=== PATIENT | male | born 1970 | race Hispanic/Latino ===

== ENCOUNTER 2021-09-02 06:57 | Day surgery (SDC) | payer BC ==
[2021-08-30 13:05] LABS: Absolute Lymphocytes (CBC) 2.4 K/uL (0.7-4.9); Hematocrit 41.7 % (39.6-49.0); MPV 7.7 fL (7.6-11.3); RBC Red Blood Cell Count 6.58 M/uL (4.33-5.43)
[2021-08-30 13:21] LABS: Potassium 4.3 mmol/L (3.5-5.1)
--- NOTE | 2021-08-30 13:46 | RAD REPORT ---
EXAM DESCRIPTION: RAD - Chest Pa And Lat (2 Views) - 08/30/2021 1:26 pm CLINICAL HISTORY: PREPROCEDURE SCREENINGpending drainage of soft tissue mass COMPARISON: None TECHNIQUE: Frontal and lateral views of the chest were obtained. FINDINGS: The lungs are clear. Heart size is normal and central vasculature is within normal limit s. No pleural effusion or pneumothorax seen. No acute bony finding noted. No aortic abnormality. IMPRESSION: No acute cardiopulmonary process.
[2021-08-30 14:18] LABS: Blood Morphology Comment NOTED (NOT SEEN); Hypochromasia 2+; Platelet Estimate ADEQ; White Blood Cell Scan OK (OK)
[2021-09-02] MEDS ORDERED: Ringers Lactate 1,000 ML IV ONE (07:29)
[2021-09-02] MEDS ORDERED: CELECOXIB 100 MG CAPSULE ONE (08:16)
[2021-09-02] MEDS ORDERED: ACETAMINOPHEN 500 MG TAB ONE (08:17)
[2021-09-02] MEDS ORDERED: BUPIVACAINE 0.5% PF 10 ML VIAL ONE (08:34)
[2021-09-02] MEDS: LIDOCAINE 1% W/EPI 1:100,000 MDV 50 ML VIAL ONE ×2 (09:08→09:30)
[2021-09-02] MEDS ORDERED: MIDAZOLAM HCL 2 MG/2 ML INJ ONE (09:29)
[2021-09-02] MEDS ORDERED: propofoL 200 MG/20 ML VIAL IV ONE ×2 (09:29→09:31)
[2021-09-02] MEDS ORDERED: FENTANYL CITR 100 MCG/2 ML ONE (09:29)
[2021-09-02] MEDS ORDERED: LIDOCAINE 1% MPF 30 ML VIAL ONE (09:29)
--- NOTE | 2021-09-02 09:50 | P.BOP ---
Preoperative diagnosis: infected posterior neck subQ mass Postoperative diagnosis: same Primary procedure: Excisional biopsy of infected posterior neck subQ mass 3x3cm Estimated blood loss: <10cc Specimen: mass and purulent discharge culture Findings: infected mass with abscess Anesthesia: MAC Complications: None Drain(s): Other (iodoform packing) Transferred to: Recovery Room Condition: Good
[2021-09-02 10:03] VITALS: BP 112/73; TEMP 97.6
[2021-09-02 10:50] VITALS: O2SAT 98
--- NOTE | 2021-09-02 20:37 | OP ---
Date of Procedure: 09/02/2021 Surgeon: Chung Hardwick MD Preoperative Diagnosis: Infected posterior neck subcutaneous mass. Postoperative Diagnosis: Infected posterior neck subcutaneous mass. Procedure: Excisional biopsy of infected posterior neck subcutaneous mass, 3 x 3 cm. Estimated Blood Loss: Less than 10 cc. Anesthesia: MAC plus local. Complications: None. Packing: Iodoform packing. Indications: This is a case of a 51-year-old patient, who comes to us with infected posterior neck m ass, purulent discharge, and cellulitis. Benefits, alternatives, and risks of excisional biopsy of i nfected posterior neck mass with drainage of an abscess fully explained which include, but not limite d to infection, bleeding, damage to adjacent structures, anesthesia complication, recurrence, SC, and even . He also understands this may not relieve his symptoms. He might need more than one willem gical intervention. He signed a consent. He also understands the need for dressing changes. Description Of Procedure: The patient was brought to the operating room and placed in supine positio n. Anesthesia was done without complication. A time-out was called. The patient was placed in late ral decubitus position with proper protection. The posterior neck area was prepped and draped in a s terile fashion. We previously marked, with me and the patient in the holding room, the area of tico rn, so we make an incision in that region to include skin and deep subcutaneous tissue. We find an a bscess deep with multiple loculations that were explored and opened. Mass was completely excised. H emostasis obtained. Area was irrigated. Cultures were previously obtained at the beginning. Local anesthesia was applied from lidocaine and Marcaine and then, the area was packed with wet-to-dry dres sing. The patient tolerated the procedure well. The patient sent to Recovery in stable condition. Sponge count and instrument count were correct. HM/MODL Voice ID: [id number] Report ID: [id number]
--- NOTE | 2021-09-02 20:43 | DS ---
Date of Discharge: 09/02/2021 Diagnosis: Infected posterior neck mass. Disposition: Home. Condition: Stable. Activity: As tolerated. No heavy lifting. Plan: Wet-to-dry dressing and normal saline daily. Followup in my office this Thursday afternoon. Call for appointment, [phone]. DI/KIRSTEN Voice ID: [id number] Report ID: [id number]
== END 2021-09-02 10:35 | disposition home or self-care (01) ==
LOC: OR 06:57
PROVIDERS: ATTEND Surgery
PROC: 0JB50ZZ Excision of Left Neck Subcutaneous Tissue and Fascia, Open Approach (ICD-10-PCS; principal; 2021-09-02 09:15)
DX: L72.0 Epidermal cyst (principal); Z20.822 Contact with and (suspected) exposure to COVID-19
CPT/HCPCS: 93005; 87070; 85025; 80048; 36415; 87205; 88304; 87075; 71046; 11423; U0003; J2704; J2250; J3010; J7120

== ENCOUNTER 2022-02-13 14:58 | Emergency (ER) | payer OTHER, BC ==
[2022-02-13] MEDS ORDERED: IBUPROFEN 200 MG TAB PO ONE (15:39)
--- NOTE | 2022-02-13 16:15 | RAD REPORT ---
EXAM DESCRIPTION: RAD - Wrist Right 3 View - 02/13/2022 4:01 pm CLINICAL HISTORY: PAIN COMPARISON: No comparisons FINDINGS: No fracture is identified. There is no dislocation or periosteal reaction noted. Epiphyses and growth plates are normal in appearance. No foreign body or other soft tissue abnormality. IMPRESSION: Negative right wrist examination. Repeat imaging can be performed in 5 days if the patient has continued symptoms concerning for fractu re.
--- NOTE | 2022-02-13 16:25 | EDPHYS ---
Physician Documentation [facility] Name: Lenny Castillo Age: 51 yrs Sex: Male : 1970 Arrival Date: 02/13/2022 Time: 15:07 Bed 11 Private MD: ED Physician Eleazar Wilson HPI: 02/13 15:17 This 51 yrs old Male presents to ER via Ambulatory with complaints of Right pm1 Wrist Pain. 15:17 The patient or guardian reports pain. The complaints affect the right wrist diffusely. pm1 Context: The problem was sustained at work, resulted from tripped and supported his fall against the wall with his right hand. Onset: The symptoms/episode began/occurred today. Modifying factors: The symptoms are alleviated by holding still, the symptoms are aggravated by movement. Associated signs and symptoms: Pertinent negatives: decreased sensation distally, numbness distally, tingling distally. The patient has not experienced similar symptoms in the past. The patient has not recently seen a physician. Historical: - Allergies: 15:12 No Known Allergies; iw - PMHx: 15:12 aortic aneurysm; Asthma; iw - Immunization history:: Adult Immunizations unknown. - Social history:: Smoking status: unknown. ROS: 15:17 Constitutional: Negative for fever, chills, and weight loss, Cardiovascular: Negative pm1 for chest pain, palpitations, and edema, Respiratory: Negative for shortness of breath, cough, wheezing, and pleuritic chest pain. 15:17 Skin: Negative for injury, rash, and discoloration, Neuro: Negative for headache, weakness, numbness, tingling, and seizure. 15:17 MS/extremity: Positive for pain, of the right wrist. 15:17 All other systems are negative. Exam: 15:17 Hand exam: Exam is positive for injury, pain, ROM: full active range of motion, in the pm1 right wrist, full passive range of motion, in the right wrist, Patient able to make a full fist with his right hand, Circulation is intact in all extremities. sensation intact. 15:17 Skin: Exam negative for acute changes, Appearance: normal except for affected area. 15:17 Constitutional: This is a well developed, well nourished patient who is awake, alert, and in no acute distress. Head/Face: Normocephalic, atraumatic. 15:17 Cardiovascular: Exam negative for acute changes, Rate: normal, Rhythm: regular, Pulses: no pulse deficits are appreciated. 15:17 Respiratory: Exam negative for acute changes, respiratory distress, shortness of breath. 15:17 Neuro: Exam negative for acute changes, Orientation: is normal, Mentation: is normal, Motor: is normal, moves all fours. Vital Signs: 15:11 BP 120 / 85; Pulse 94; Resp 16; Temp 98.4; Pulse Ox 98% on R/A; Weight 91.63 kg; Height iw 5 ft. 10 in. (177.80 cm); Pain 8/10; 15:11 Body Mass Index 28.98 (91.63 kg, 177.80 cm) iw MDM: 15:14 Patient medically screened. [facility] 15:22 Data reviewed: vital signs. Data interpreted: Pulse oximetry: on room air is 98 %. pm1 Interpretation: normal. 16:23 Counseling: I had a detailed discussion with the patient and/or guardian regarding: the pm1 historical points, exam findings, and any diagnostic results supporting the discharge/admit diagnosis, radiology results, the need for outpatient follow up, to return to the emergency department if symptoms worsen or persist or if there are any questions or concerns that arise at home. 16:29 ED course: Patient requesting pain medication stronger than NSAID, therefore will pm1 prescribe prescription for Tylenol 3. 16:32 ED course: PMPAware reviewed. pm1 02/13 15:22 Order name: Wrist Right 3 View XRAY; Complete Time: 16:22 pm1 02/13 16:23 Order name: Wrist Splint; Complete Time: 07:54 pm1 Administered Medications: 15:33 Drug: Ibuprofen 600 mg Route: PO; iw 16:33 Follow up: Response: No adverse reaction iw Disposition Summary: 02/13/22 16:24 Discharge Ordered Location: Home pm1 Problem: new pm1 Symptoms: have improved pm1 Condition: Stable pm1 Diagnosis - Unspecified sprain of right wrist, initial encounter pm1 Followup: pm1 - With: Emergency Department - When: As needed - Reason: Worsening of condition Followup: pm1 - With: Private Physician - When: 5 - 6 days - Reason: Recheck today's complaints, Continuance of care, Re-evaluation by your physician Discharge Instructions: - Discharge Summary Sheet pm1 - Wrist Splint, Adult pm1 - Wrist Sprain, Adult pm1 Forms: - Medication Reconciliation Form pm1 - Thank You Letter pm1 - Antibiotic Education pm1 - Prescription Opioid Use pm1 Prescriptions: - Diclofenac Sodium 75 mg Oral tablet,delayed release (DR/EC) - take 1 tablet by ORAL route 2 times per day As needed; 30 tablet; Refills: 0, pm1 Product Selection Permitted - Tylenol-Codeine #3 300 mg-30 mg Oral - take 2 tablet by ORAL route every 6 hours As needed; 16 tablet; Refills: 0, pm1 Product Selection Permitted Signatures: Dispatcher [employer] EDEleazar White MD MD cha Williams, Irene, RN RN Trevor Dale NP ACID ETCH OPERATOR pm1
--- NOTE | 2022-02-13 16:25 | ER ---
Nurse's Notes [facility] Name: Lenny Castillo Age: 51 yrs Sex: Male : 1970 Arrival Date: 02/13/2022 Time: 15:07 Bed 11 Private MD: Diagnosis: Unspecified sprain of right wrist, initial encounter Presentation: 02/13 15:11 Chief complaint: Patient states: I tripped at work today and jammed my right hand into iw the wall. Coronavirus screen: At this time, the client does not indicate any symptoms associated with coronavirus-19. Ebola Screen: Patient negative for fever greater than or equal to 101.5 degrees Fahrenheit, and additional compatible Ebola Virus Disease symptoms Patient denies exposure to infectious person. Patient denies travel to an Ebola-affected area in the 21 days before illness onset. No symptoms or risks identified at this time. Initial Sepsis Screen: Does the patient meet any 2 criteria? No. Patient's initial sepsis screen is negative. Does the patient have a suspected source of infection? No. Patient's initial sepsis screen is negative. Risk Assessment: Do you want to hurt yourself or someone else? Patient reports no desire to harm self or others. Onset of symptoms was February 13, 2022. 15:11 Method Of Arrival: Ambulatory iw 15:11 Acuity: DREA 4 iw Triage Assessment: 16:50 General: Appears in no apparent distress. Behavior is calm, cooperative. iw Historical: - Allergies: 15:12 No Known Allergies; iw - PMHx: 15:12 aortic aneurysm; Asthma; iw - Immunization history:: Adult Immunizations unknown. - Social history:: Smoking status: unknown. Screenin:50 Abuse screen: Denies threats or abuse. Denies injuries from another. Nutritional iw screening: No deficits noted. Tuberculosis screening: No symptoms or risk factors identified. Fall Risk None identified. Assessment: 15:30 General: Appears in no apparent distress. Behavior is calm, cooperative. Pain: iw Complains of pain in right wrist. Neuro: Level of Consciousness is awake, alert, obeys commands, Oriented to person, place, time, situation, Moves all extremities. Cardiovascular: Patient's skin is warm and dry. Respiratory: Respiratory effort is even, unlabored, Respiratory pattern is regular, symmetrical. Derm: Skin is intact, is healthy with good turgor. Musculoskeletal: Range of motion: intact in all extremities. Vital Signs: 15:11 BP 120 / 85; Pulse 94; Resp 16; Temp 98.4; Pulse Ox 98% on R/A; Weight 91.63 kg; Height iw 5 ft. 10 in. (177.80 cm); Pain 8/10; 15:11 Body Mass Index 28.98 (91.63 kg, 177.80 cm) iw ED Course: 15:07 Patient arrived in ED. iw 15:09 Trevor Resendiz NP is PHCP. pm1 15:09 Eleazar Wilson MD is Attending Physician. pm1 15:12 Triage completed. iw 15:13 Darshana Escobar RN is Primary Nurse. iw 15:13 Arm band placed on. iw 15:30 Patient has correct armband on for positive identification. iw 16:03 Wrist Right 3 View XRAY In Process Unspecified. EDMS 16:50 No provider procedures requiring assistance completed. Patient did not have IV access iw during this emergency room visit. Administered Medications: 15:33 Drug: Ibuprofen 600 mg Route: PO; iw 16:33 Follow up: Response: No adverse reaction iw Medication: 15:30 VIS not applicable for this client. iw Outcome: 16:24 Discharge ordered by MD. pm1 16:50 Discharged to home ambulatory. iw 16:50 Condition: good 16:50 Discharge instructions given to patient, Instructed on discharge instructions, follow up and referral plans. medication usage, Demonstrated understanding of instructions, follow-up care, medications, Prescriptions given X 2. 16:51 Patient left the ED. iw Signatures: Dispatcher [employer] EDRI Darshana Escobar RN RN iw Trevor Resendiz NP COACH CLEANER pm1
[2022-02-13 17:11] VITALS: BP 120/85; TEMP 98.4; O2SAT 98
== END 2022-02-13 16:51 | disposition home or self-care (01) ==
LOC: ER 14:58
DX: S63.501A Unspecified sprain of right wrist, initial encounter (principal)
CPT/HCPCS: 99283

== ENCOUNTER 2022-07-20 23:03 | Emergency (ER) | payer BC, OTHER ==
--- OUTSIDE RECORDS SUMMARY | 2022-07-20 23:08 | XMS REPORT | Continuity of Care Document ---
:1970 Author Organization [facility] t Address [facility] [place] [address] Care Team Providers Name Role Phone DAVID AVENDAÑO Primary Care Physician Unavailable NIKITA FANG Attending Clinician Unavailable Lab, Ang - Db Attending Clinician Unavailable David Avendaño MD Attending Clinician DAVID AVENDAÑO Attending Clinician Unavailable IRENE FREDERICK Attending Clinician Unavailable Gabrielle Almeida Attending Clinician Feliciano Espinosa MD Attending Clinician Doctor Unassigned, [place] Attending Clinician Unavailable Team, [facility] Attending Clinician Unavailabl e Vaccine, Jem Posadas Cbc Fam Attending Clinician Unavailable January Arguello Attending Clinician JANUARY CLAY Attending Clinician Unavailable FELICIANO ESPINOSA Attending Clinician Unavailable Lela Augustin MA Attending Clinician Unavailable Irene Frederick MD Attending Clinician GABRIELLE RODRIGUEZ Attending Clinician Unavailable Mahogany Crowe Attending Clinician Yumiko Fernandez RN Attending Clinician Unavailable SMITHA MEDRANO Attending Clinician Unavailable Smitha Dow Attending Clinician Gloria Lomax Attending Clinician Nurse, Jem Posadas Attending Clinician Unavailable Lab, Adc Fam Pob I Attending Clinician Unavailable Silvia Kulkarni MD Attending Clinician SILVIA KULKARNI Attending Clinician Unavailable MAHOGANY MAYNARD Attending Clinician Unavailable Eric Tubbs MD Attending Clinician Kaveh Schaefer MD Attending Clinician NISH REYNA Attending Clinician Unavailable Kaveh Schaefer MD Admitting Clinician Payers Payer Name Policy Type Policy Number Effective Date Expiration Date Zehra guzman [employer] [facility] [facility] [id number] 2020 00:00:00 [employer] [id number] 2020 [facility] 00:00:00 Problems Condition Condition Condition Status Onset Resolution Last Treating Co mments Source Name Details Category Date Date Treatment Clinician Date Arthritis Arthritis Disease Active Uni vers 6-13 ity of 00:00: [place] 00 Medical Branch History of History of Disease Active U nivers cataract cataract 6-13 ity of 00:00: [place] 00 Medical Branch Hyperbilir Hyperbilir Disease Active U nivers ubinemia ubinemia 6-13 ity of 00:00: [place] 00 Medical Branch Knee pain Knee pain Disease Active Uni vers 6-13 ity of 00:00: [place] 00 Medical Branch Ascending Ascending Disease Active Uni vers aortic aortic 6-07 ity of aneurysm aneurysm 00:00: [place] 00 Medical Branch Chest pain Chest pain Disease Active U nivers 6-06 ity of 00:00: [place] 00 Medical Branch Well adult Well adult Disease Active 2017-07 U nivsoco exam exam 0-01 ity of 00:00: [place] 00 Medical Branch Need for Need for Disease Active 2017-07 Unive rs prophylact prophylact 0-01 it y of ic ic 00:00: [place] vaccinatio vaccinatio 00 Me dical n and n and Branch inoculatio inoculatio n against n against influenza influenza Nonrheumat Nonrheumat Disease Active Overview : Univers ic aortic ic aortic 2-14 Formattin i ty of valve valve 00:00: g of this [place] stenosis stenosis 00 note Medica l might be Branch different from the original. Formattin g of this note might be different from the original. Repeat ECHO q year Anxiety Anxiety Disease Active Overview: Univ ers 08-19 Formattin ity of 00:00: g of this note Medical might be Branch different from the original. Last Assessmen t & Plan: Formattin g of this note might be different from the original. Less tired while off Paxil but still nervous on 30mg Cymbalta, will try 60mg call if wants 40 mg Hypertensi Hypertensi Disease Active Overview : Univers on on 08-19 Formattin ity of 00:00: g of this note Medical might be Branch different from the original. Last Assessmen t & Plan: Formattin g of this note might be different from the original. Hypertens ion is unchanged .Continue current treatment regimen.B lood pressure will be reassesse d 6 months. Gastric Gastric Disease Active 2015-07 Univers polyps polyps 09-11 ity of 00:00: [place] 00 Medical Branch Chronic Chronic Disease Active 2015-07 Univers cough cough 2 ity of 00:00: [place] [facility] Allergic Allergic Disease Active Unive rs rhinitis rhinitis 02-14 ity of 00:00: [place] 00 Medical Branch Gastroesop Gastroesop Disease Active U nivers hageal hageal 02-14 ity of reflux reflux 00:00: [place] disease disease 00 Medical without without Branch esophagiti esophagiti s s Moderate Moderate Disease Active Unive rs persistent persistent 02-14 it y of asthma asthma 00:00: [place] without without 00 Medical complicati complicati Br anch on on Mixed Mixed Disease Active Overview: Univer s hyperlipid hyperlipid 02-14 Formattin ity of emia emia 00:00: g of this note Medical might be Branch different from the original. Last Assessmen t & Plan: Formattin g of this note might be different from the original. Lipid abnormali ties are improving with lifestyle modificat ions.cont inue regular exercise and low fat dietLipid s will be reassesse d in 6 months. Bicuspid Bicuspid Disease Active Overview: Un espinoza aortic aortic 02-10 Formattin ity of valve valve 00:00: g of this note Medical might be Branch different from the original. Formattin g of this note might be different from the original. Repeat ECHO q year Ascending Ascending Disease Active Uni vers aorta aorta 7-25 ity of dil[place] 00 [place] Beta Beta Disease Active Univers thalassemi thalassemi it y of a trait a trait [place] [facility] [place] Allergies, Adverse Reactions, Alerts Allergy Allergy Status Severity Reaction(s) Onset Inactive Treating Comm ents Source Name Type Date Date Clinician Cat Propensi Active Unknown - Unive rs Dander ty to See comments 3-22 ity of adverse 00:00: [place] reaction 00 Medical s Branch Dog Propensi Active Unknown - Unive rs Dander ty to See comments 3-22 ity of adverse 00:00: [place] reaction 00 Medical s Branch Grass Propensi Active Itching Univers Pollen ty to 3-22 ity of adverse 00:00: [place] reaction 00 Medical s Branch Tree And Propensi Active Unknown - Uni vers Shrub ty to See comments 3-22 ity of Pollen adverse 00:00: [place] reaction 00 Medical s Branch CAT DRUG Active Unknown-Cmnt Univ ers DANDER INGREDI 3-22 ity of 00:00: [place] 00 Medical Branch DOG DRUG Active Unknown-Cmnt Univ ers DANDER INGREDI 3-22 ity of 00:00: [place] 00 Medical Branch GRASS DRUG Active ITCHING Univers POLLEN INGREDI 3- ity of 00:00: [place] 00 Medical Branch TREE AND DRUG Active Unknown-Cmnt Un espinoza SHRUB INGREDI 3-22 ity of POLLEN 00:00: [place] 00 Medical Branch Hay Propensi Active Unknown - Unive rs Fever ty to See comments 7-29 ity of And adverse 00:00: [place] Allergy reaction 00 Medical Relief s Branch HAY DRUG Active Unknown-Cmnt Univ ers FEVER 7-29 ity of AND 00:00: [place] ALLERGY 00 Medical RELIEF Branch Social History Social Habit Start Date Stop Date Quantity Comments Source History SDOH University o f Alcohol Std [place] Medical Drinks Branch History SDKS University o f Alcohol Binge [place] Medic al Branch History SDKS University o f Alcohol Comment [place] [facility] Exposure to 2022-07-07 2022-07-17 Not sure University of SARS-CoV-2 00:00:00 07:44:00 [place] [facility] (event) Branch Alcohol intake 2022-01-07 2022-01-07 Lifetime University of 00:00:00 00:00:00 non-drinker [facility] [place] (finding) [place] Tobacco use and 2020-12-23 2020-12-23 Smokeless tobacco Un iversity of exposure 00:00:00 00:00:00 non-user [facility] History SDOH 2020-12-23 2020-12-23 1 University o f Alcohol Frequency 00:00:00 00:00:00 [facility] Sex Assigned At [birth year] Universit y of 00:00:00 00:00:00 [facility] Smoking Status Start Date Stop Date Source Never smoked tobacco [facility] Medications Ordered Filled Start Stop Current Ordering Indication Dosage Frequency Signature Comments Components Source Medication Medication Date Date Medication? Clinician (SIG) [place] 2021-07- No 1{capsu Take 1 Univers n capsule 09-16 le} capsule by ity of 08:41: 00:00 mouth. [place] 12 :00 [facility] [place] [facility] 2021-07- No 1{capsu Take 1 Univers n capsule 09-16 le} capsule by ity of 08:41: 00:00 mouth. [place] 12 :00 [facility] rosuvastati 2021-07- No 20mg Take 20 mg Univers n 20 mg 1-27 11-27 by mouth ity of tablet 09:05: 15:05 at [place] 49 :47 bedtime. Medical Branch MONTELUKAST 2021-07 Yes [id number] TAKE 1 Univers 10 mg 1-27 TABLET BY ity of tablet 00:00: MOUTH ONCE [place] 00 DAILY IN Medical THE Branch EVENING DULOXETINE 2021-07 Yes [id number] Take 1 U nivers 60 mg 1-27 capsule by ity of capsule 00:00: mouth once daily Medical Branch ROSUVASTATI 2021-07 Yes [id number] Take 1 Univers N 20 mg 1-27 tablet by ity of tablet 00:00: mouth once [place] 00 daily Medical Branch MONTELUKAST 2021-07 Yes [id number] TAKE 1 Univers 10 mg 1-27 TABLET BY ity of tablet 00:00: MOUTH ONCE 00 DAILY IN Medical THE Branch EVENING DULOXETINE 2021-07 Yes [id number] Take 1 U nivers 60 mg 1-27 capsule by ity of capsule 00:00: [place] ROSUVASTATI 2021-07 Yes [id number] Take 1 Univers N 20 mg 1-27 tablet by ity of tablet 00:00: mouth once [place] daily Medical Branch MONTELUKAST 2021-07 Yes [id number] TAKE 1 Univers 10 mg 1-27 TABLET BY ity of tablet 00:00: MOUTH ONCE DAILY IN Medical THE Branch EVENING DULOXETINE 2021-07 Yes [id number] Take 1 U nivers 60 mg 1-27 capsule by ity of capsule 00:00: [place] ROSUVASTATI 2021-07 Yes [id number] Take 1 Univers N 20 mg 1-27 tablet by ity of tablet 00:00: mouth once daily Medical Branch MONTELUKAST 2021-07 Yes [id number] TAKE 1 Univers 10 mg 1-27 TABLET BY ity of tablet 00:00: MOUTH ONCE DAILY IN [facility] THE [place] EVENING DULOXETINE 2021-07 Yes [id number] Take 1 U nivers 60 mg 1-27 capsule by ity of capsule 00:00: mouth once a s daily Medical Branch ROSUVASTATI 2021-07 Yes [id number] Take 1 Univers N 20 mg 1-27 tablet by ity of tablet 00:00: mouth once daily [facility] Branch MONTELUKAST 2021-07 Yes [id number] TAKE 1 Univers 10 mg 1-27 TABLET BY ity of tablet 00:00: MOUTH ONCE DAILY IN [facility] THE [place] EVENING DULOXETINE 2021-07 Yes [id number] Take 1 U nivers 60 mg 1-27 capsule by ity of capsule 00:00: mouth [place] daily [facility] Branch ROSUVASTATI 2021-07 Yes [id number] Take 1 Univers N 20 mg 1-27 tablet by ity of tablet 00:00: mouth once daily [facility] Branch MONTELUKAST 2021-07 Yes [id number] TAKE 1 Univers 10 mg 1-27 TABLET BY ity of tablet 00:00: MOUTH ONCE [place] 00 DAILY IN [facility] EVENING DULOXETINE 2021-07 Yes [id number] Take 1 U nivers 60 mg 1-27 capsule by ity of capsule 00:00: [place] ROSUVASTATI 2021-07 Yes [id number] Take 1 Univers N 20 mg 1-27 tablet by ity of tablet 00:00: mouth once daily Medical Branch MONTELUKAST 2021-07 Yes [id number] TAKE 1 Univers 10 mg 1-27 TABLET BY ity of tablet 00:00: MOUTH ONCE DAILY IN Medical THE Branch EVENING DULOXETINE 2021-07 Yes [id number] Take 1 U nivers 60 mg 1-27 capsule by ity of capsule 00:00: mouth once daily Medical Branch ROSUVASTATI 2021-07 Yes [id number] Take 1 Univers N 20 mg 1-27 tablet by ity of tablet 00:00: mouth once daily Medical Branch MONTELUKAST 2021-07 Yes [id number] TAKE 1 Univers 10 mg 1-27 TABLET BY ity of tablet 00:00: MOUTH ONCE DAILY IN Medical THE Branch EVENING DULOXETINE 2021-07 Yes [id number] Take 1 U nivers 60 mg 1-27 capsule by ity of capsule 00:00: mouth once daily Medical Branch ROSUVASTATI 2021-07 Yes [id number] Take 1 Univers N 20 mg 1-27 tablet by ity of tablet 00:00: mouth once daily Medical Branch LOSARTAN 50 2021-07 Yes [id number] 50mg TAKE 1 Univers mg tablet 1-25 TABLET BY ity o f 00:00: MOUTH IN [place] THE Medical MORNING Branch LOSARTAN 50 2021-07 Yes [id number] 50mg TAKE 1 Univers mg tablet 1-25 TABLET BY ity o f 00:00: MOUTH IN [place] THE Medical MORNING Branch LOSARTAN 50 2021-07 Yes [id number] 50mg TAKE 1 Univers mg tablet 1-25 TABLET BY ity o f 00:00: MOUTH IN [place] THE Medical MORNING Branch LOSARTAN 50 2021-07 Yes [id number] 50mg TAKE 1 Univers mg tablet 1-25 TABLET BY ity o f 00:00: MOUTH IN [place] THE Medical MORNING Branch LOSARTAN 50 2021-07 Yes [id number] 50mg TAKE 1 Univers mg tablet 1-25 TABLET BY ity o f 00:00: MOUTH IN [place] THE Medical MORNING Branch LOSARTAN 50 2021-07 Yes [id number] 50mg TAKE 1 Univers mg tablet 1-25 TABLET BY ity o f 00:00: MOUTH IN [place] 00 THE Medical MORNING Branch LOSARTAN 50 2021-1 Yes [id number] 50mg TAKE 1 Univers mg tablet 1-25 TABLET BY ity o f 00:00: MOUTH IN [place] 00 THE Medical MORNING Branch LOSARTAN 50 2021-1 Yes [id number] 50mg TAKE 1 Univers mg tablet 1-25 TABLET BY ity o f 00:00: MOUTH IN [place] 00 THE Medical MORNING Branch LOSARTAN 50 2021-1 Yes [id number] 50mg TAKE 1 Univers mg tablet 1-25 TABLET BY ity o f 00:00: MOUTH IN [place] 00 THE Medical MORNING Branch losartan 50 2021-0 Yes [id number] 50mg Take 1 Univers mg tablet 7-29 tablet by ity o f 00:00: mouth in [place] 00 the Medical morning. Branch losartan 50 2021-0 Yes [id number] 50mg Take 1 Univers mg tablet 7-29 tablet by ity o f 00:00: mouth in [place] 00 the Medical morning. Branch losartan 50 2021-0 2021- No [id number] 50mg Take 1 Univers mg tablet 7-29 11-25 tablet by ity of 00:00: 00:00 mouth in [place] 00 :00 the Medical morning. Branch loratadine 0 Yes 10mg Take 10 mg U nivers 10 mg 6-22 by mouth ity of tablet 08:02: daily. [place] [address] Medical Branch rosuvastati 2021-0 Yes 20mg Take 20 mg Univers n 20 mg 6-22 by mouth ity of tablet 08:02: at [place] [address] bedtime. Medical Branch loratadine 2021-0 Yes 10mg Take 10 mg U nivers 10 mg 6-22 by mouth ity of tablet 08:02: daily. [place] [address] Medical Branch rosuvastati 2021-0 Yes 20mg Take 20 mg Univers n 20 mg 6-22 by mouth ity of tablet 08:02: at [place] [address] bedtime. Medical Branch loratadine 2021-0 Yes 10mg Take 10 mg U nivers 10 mg 6-22 by mouth ity of tablet 08:02: daily. [place] [address] Medical Branch rosuvastati 2021-0 Yes 20mg Take 20 mg Univers n 20 mg 6-22 by mouth ity of tablet 08:02: at [place] [address] bedtime. Medical Branch loratadine 2021-0 Yes 10mg Take 10 mg U nivers 10 mg 6-22 by mouth ity of tablet 08:02: daily. [address] loratadine 0 Yes 10mg Take 10 mg U nivers 10 mg 6-22 by mouth ity of tablet 08:02: daily. [address] Branch loratadine 2021-0 Yes 10mg Take 10 mg U nivers 10 mg 6-22 by mouth ity of tablet 08:02: daily. [address] loratadine 2021-0 Yes 10mg Take 10 mg U nivers 10 mg 6-22 by mouth ity of tablet 08:02: daily. [address] Branch loratadine 2021-0 Yes 10mg Take 10 mg U nivers 10 mg 6-22 by mouth ity of tablet 08:02: daily. [address] loratadine 0 Yes 10mg Take 10 mg U nivers 10 mg 6-22 by mouth ity of tablet 08:02: daily. [address] loratadine 0 Yes 10mg Take 10 mg U nivers 10 mg 6-22 by mouth ity of tablet 08:02: daily. [address] loratadine 0 Yes 10mg Take 10 mg U nivers 10 mg 6-22 by mouth ity of tablet 08:02: daily. [address] Branch rosuvastati 0 Yes 20mg Take 20 mg Univers n 20 mg 6-21 by mouth ity of tablet 15:55: at [place] 11 bedtime. Medical Branch simvastatin 2021-0 2021- No 20mg Take 20 mg Univers 20 mg 6-21 06-21 by mouth ity of tablet 15:54: 00:00 at [place] 46 :00 bedtime. Medical Branch loratadine 0 Yes 10mg Take 10 mg U nivers 10 mg 6-21 by mouth ity of tablet 15:53: daily. [place] 25 Medical Branch cetirizine 2021-0 2021- No 10mg Take 10 mg Univers 10 mg 6-21 06-21 by mouth. ity of tablet 15:51: 00:00 [place] 54 :00 Medical Branch fexofenadin 2021-0 2021- No 180mg Take 180 Univers e 180 mg 6-21 06-21 mg by ity of tablet 15:51: 00:00 mouth [place] 05 :00 daily. Medical Branch omeprazole 2021-0 Yes [id number] 20mg Take 1 Univers 20 mg 6-21 capsule by ity of capsule 00:00: mouth [place] 00 daily. Medical Branch omeprazole 2021-0 Yes [id number] 20mg Take 1 Univers 20 mg 6-21 capsule by ity of capsule 00:00: mouth [place] 00 daily. Medical Branch omeprazole 2021-0 Yes [id number] 20mg Take 1 Univers 20 mg 6-21 capsule by ity of capsule 00:00: mouth [place] 00 daily. Medical Branch omeprazole 2021-0 Yes [id number] 20mg Take 1 Univers 20 mg 6-21 capsule by ity of capsule 00:00: mouth [place] 00 daily. Medical Branch omeprazole 2021-0 Yes [id number] 20mg Take 1 Univers 20 mg 6-21 capsule by ity of capsule 00:00: mouth [place] 00 daily. Medical Branch omeprazole 2021-0 Yes [id number] 20mg Take 1 Univers 20 mg 6-21 capsule by ity of capsule 00:00: mouth [place] 00 daily. Medical Branch omeprazole 2021-0 Yes [id number] 20mg Take 1 Univers 20 mg 6-21 capsule by ity of capsule 00:00: mouth [place] 00 daily. Medical Branch omeprazole 2021-0 Yes [id number] 20mg Take 1 Univers 20 mg 6-21 capsule by ity of capsule 00:00: mouth [place] 00 daily. Medical Branch omeprazole 2021-0 Yes [id number] 20mg Take 1 Univers 20 mg 6-21 capsule by ity of capsule 00:00: mouth [place] 00 daily. Medical Branch omeprazole 2021-0 Yes [id number] 20mg Take 1 Univers 20 mg 6-21 capsule by ity of capsule 00:00: mouth [place] 00 daily. Medical Branch omeprazole 2021-0 Yes [id number] 20mg Take 1 Univers 20 mg 6-21 capsule by ity of capsule 00:00: mouth [place] 00 daily. Medical Branch omeprazole 2021-0 Yes [id number] 20mg Take 1 Univers 20 mg 6-21 capsule by ity of capsule 00:00: mouth [place] 00 daily. Medical Branch acetaminoph 2021-2021- No Unive rs en-codeine 2-01-07 ity of 300-30 mg 00:00: 00:00 [place] tablet 00 :00 Medical Branch clindamycin [id number] No [id number] 300mg Take 1 Univers 300 mg 08-28 capsule by ity of capsule 00:00: 00:00 mouth 3 [place] 00 :00 (three) Medical times [place] daily. OMEPRAZOLE 2020-07- No [id number] Take 1 Univers 20 mg 2- capsule by ity of capsule 00:00: 00:00 mouth once [place] 00 :00 daily [facility] multivitami 2020-07 Yes 1{capsu Take 1 U nivers n capsule 1-20 le} capsule by ity of 09:25: mouth. [address] multivitami 2020-07 Yes 1{capsu Take 1 U nivers n capsule 1-20 le} capsule by ity of 09:25: mouth. [address] multivitami 2020-07 Yes 1{capsu Take 1 U nivers n capsule 1-20 le} capsule by ity of 09:25: mouth. [address] multivitami 2020-07 Yes 1{capsu Take 1 U nivers n capsule 1-20 le} capsule by ity of 09:25: mouth. [address] multivitami 2020-07 Yes 1{capsu Take 1 U nivers n capsule 1-20 le} capsule by ity of 09:25: mouth. [address] multivitami 2020-07 Yes 1{capsu Take 1 U nivers n capsule 1-20 le} capsule by ity of 09:25: mouth. [address] multivitami 2020-07 Yes 1{capsu Take 1 U nivers n capsule 1-20 le} capsule by ity of 09:25: mouth. [address] multivitami 2020-07 Yes 1{capsu Take 1 U nivers n capsule 1-20 le} capsule by ity of 09:25: mouth. [address] multivitami 2020-07 Yes 1{capsu Take 1 U nivers n capsule 1-20 le} capsule by ity of 09:25: mouth. [address] montelukast Yes [id number] 10mg Take 1 Univers 10 mg 9-27 tablet by ity of tablet 00:00: mouth [address] Medical evening. [place] montelukast Yes [id number] 10mg Take 1 Univers 10 mg 9-27 tablet by ity of tablet 00:00: mouth [place] 00 every Medical evening. Branch montelukast Yes [id number] 10mg Take 1 Univers 10 mg 9-27 tablet by ity of tablet 00:00: mouth [place] 00 every Medical evening. Branch montelukast Yes [id number] 10mg Take 1 Univers 10 mg 9-27 tablet by ity of tablet 00:00: mouth [place] 00 every Medical evening. Branch montelukast 2021- No [id number] 10mg Take 1 Univers 10 mg 9-27 11-27 tablet by ity of tablet 00:00: 15:05 mouth [place] 00 :47 every Medical evening. Branch rosuvastati 2021- No [id number] 20mg Take 1 Univers n 20 mg 6-09 06-21 tablet by ity of tablet 00:00: 00:00 mouth [place] 00 :00 daily. Medical Branch losartan 50 Yes [id number] 50mg Take 1 Univers mg tablet 6-01 tablet by ity o f 00:00: mouth [place] 00 daily. Medical Branch DULoxetine Yes [id number] 60mg Take 1 U nivers 60 mg 6-01 capsule by ity of capsule 00:00: mouth [place] 00 daily. Medical Branch fluticasone Yes [id number] INHALE 1 Univers propion-flores 6-01 DOSE BY ity o f meteroL 00:00: MOUTH [place] 250-50 00 TWICE Medical mcg/dose DAILY; Branch inhalation Rinse disk mouth after each use albuterol Yes [id number] 2{puff} Inhale 2 Univers 90 6-01 Puffs ity of mcg/actuati 00:00: every 6 [place] as on inhaler 00 (six) Medical hours as Branch needed for Wheezing or Shortness of Breath. DULoxetine Yes [id number] 60mg Take 1 U nivers 60 mg 6-01 capsule by ity of capsule 00:00: mouth [place] 00 daily. Medical Branch fluticasone Yes [id number] INHALE 1 Univers propion-flores 6-01 DOSE BY ity o f meteroL 00:00: MOUTH [place] 250-50 00 TWICE Medical mcg/dose DAILY; Branch inhalation Rinse disk mouth after each use albuterol Yes [id number] 2{puff} Inhale 2 Univers 90 6-01 Puffs ity of mcg/actuati 00:00: every 6 [place] on inhaler 00 (six) Medical hours as Branch needed for Wheezing or Shortness of Breath. DULoxetine Yes [id number] 60mg Take 1 U nivers 60 mg 6-01 capsule by ity of capsule 00:00: mouth [place] 00 daily. Medical Branch fluticasone Yes [id number] INHALE 1 Univers propion-flores 6-01 DOSE BY ity o f meteroL 00:00: MOUTH [place] 250-50 00 TWICE Medical mcg/dose DAILY; Branch inhalation Rinse disk mouth after each use albuterol Yes [id number] 2{puff} Inhale 2 Univers 90 6-01 Puffs ity of mcg/actuati 00:00: every 6 [place] on inhaler 00 (six) Medical hours as Branch needed for Wheezing or Shortness of Breath. DULoxetine Yes [id number] 60mg Take 1 U nivers 60 mg 6-01 capsule by ity of capsule 00:00: mouth [place] 00 daily. Medical Branch fluticasone Yes [id number] INHALE 1 Univers propion-flores 6-01 DOSE BY ity o f meteroL 00:00: MOUTH [place] 250-50 00 TWICE Medical mcg/dose DAILY; Branch inhalation Rinse disk mouth after each use albuterol Yes [id number] 2{puff} Inhale 2 Univers 90 6-01 Puffs ity of mcg/actuati 00:00: every 6 [place] on inhaler 00 (six) Medical hours as Branch needed for Wheezing or Shortness of Breath. fluticasone Yes [id number] INHALE 1 Univers propion-fl[place] 6-01 DOSE BY ity o f meteroL 00:00: MOUTH [place] 250-50 00 TWICE Medical mcg/dose DAILY; Branch inhalation Rinse disk mouth after each use albuterol Yes [id number] 2{puff} Inhale 2 Univers 90 6-01 Puffs ity of mcg/actuati 00:00: every 6 [place] on inhaler 00 (six) Medical hours as Branch needed for Wheezing or Shortness of Breath. fluticasone Yes [id number] INHALE 1 Univers propion-fl[place] 6-01 DOSE BY ity o f meteroL 00:00: MOUTH [place] 250-50 00 TWICE Medical mcg/dose DAILY; Branch inhalation Rinse disk mouth after each use albuterol Yes [id number] 2{puff} Inhale 2 Univers 90 6-01 Puffs ity of mcg/actuati 00:00: every 6 [place] on inhaler 00 (six) Medical hours as Branch needed for Wheezing or Shortness of Breath. fluticasone Yes [id number] INHALE 1 Univers propion-flores 6-01 DOSE BY ity o f meteroL 00:00: MOUTH [place] 250-50 00 TWICE Medical mcg/dose DAILY; Branch inhalation Rinse disk mouth after each use albuterol Yes [id number] 2{puff} Inhale 2 Univers 90 6-01 Puffs ity of mcg/actuati 00:00: every 6 [place] on inhaler 00 (six) Medical hours as Branch needed for Wheezing or Shortness of Breath. fluticasone Yes [id number] INHALE 1 Univers propion-fl[place] 6-01 DOSE BY ity o f meteroL 00:00: MOUTH [place] 250-50 00 TWICE Medical mcg/dose DAILY; Branch inhalation Rinse disk mouth after each use albuterol Yes [id number] 2{puff} Inhale 2 Univers 90 6-01 Puffs ity of mcg/actuati 00:00: every 6 [place] on inhaler 00 (six) Medical hours as Branch needed for Wheezing or Shortness of Breath. fluticasone Yes [id number] INHALE 1 Univers propion-[place] 6-01 DOSE BY ity o f meteroL 00:00: MOUTH [place] 250-50 00 TWICE Medical mcg/dose DAILY; Branch inhalation Rinse disk mouth after each use albuterol Yes [id number] 2{puff} Inhale 2 Univers 90 6-01 Puffs ity of mcg/actuati 00:00: every 6 [place] as on inhaler 00 (six) Medical hours as Branch needed for Wheezing or Shortness of Breath. fluticasone Yes [id number] INHALE 1 Univers propion-fl[place] 6-01 DOSE BY ity o f meteroL 00:00: MOUTH [place] 250-50 00 TWICE Medical mcg/dose DAILY; Branch inhalation Rinse disk mouth after each use albuterol Yes [id number] 2{puff} Inhale 2 Univers 90 6-01 Puffs ity of mcg/actuati 00:00: every 6 [place] as on inhaler 00 (six) Medical hours as Branch needed for Wheezing or Shortness of Breath. fluticasone Yes [id number] INHALE 1 Univers propion-flores - DOSE BY ity o f meteroL 00:00: MOUTH [place] 250-50 00 TWICE Medical mcg/dose DAILY; Branch inhalation Rinse disk mouth after each use albuterol Yes [id number] 2{puff} Inhale 2 Univers 90 6-01 Puffs ity of mcg/actuati 00:00: every 6 [place] as on inhaler 00 (six) Medical hours as Branch needed for Wheezing or Shortness of Breath. fluticasone Yes [id number] INHALE 1 Univers propion-flores 12-18 DOSE BY ity o f meteroL 00:00: MOUTH [place] 250-50 00 TWICE Medical mcg/dose DAILY; Branch inhalation Rinse disk mouth after each use albuterol Yes [id number] 2{puff} Inhale 2 Univers 90 6-01 Puffs ity of mcg/actuati 00:00: every 6 [place] as on inhaler 00 (six) Medical hours as Branch needed for Wheezing or Shortness of Breath. DULoxetine 2021- No [id number] 60mg Take 1 Univers 60 mg 12-18 capsule by ity of capsule 00:00: 15:05 mouth [place] 00 :47 daily. Medical Branch losartan 50 2021- No [id number] 50mg Take 1 Univers mg tablet 12-18 tablet by ity of 00:00: 00:00 mouth [place] 00 :00 daily. Medical Branch sodium 2021- No 10mL Inject 10 Unive rs chloride 11-28- mL ity of injection 00:00: 00:00 intravenou [place] 00 :00 sly. Medical Branch perflutren 2021- No Inject Univ ers lipid 5-12 06-21 intravenou ity of microsphere 00:00: 00:00 sly. [place] s 1.1 mg/mL 00 :00 Medical injection Branch fluticasone 2019- Yes 2{spray Use 2 Un espinoza propionate 2-21 } Sprays in ity of 50 00:00: each [place] mcg/actuati 00 nostril. Medi pat on nasal Branch spray fluticasone 2019- Yes 2{spray Use 2 Un espinoza propionate 2-21 } Sprays in ity of 50 00:00: each [place] mcg/actuati 00 nostril. Medi pat on nasal Branch spray fluticasone 2019- Yes 2{spray Use 2 Un espinoza propionate 2-21 } Sprays in ity of 50 00:00: each [place] mcg/actuati 00 nostril. Medi pat on nasal Branch spray fluticasone 2019- Yes 2{spray Use 2 Un espinoza propionate 2-21 } Sprays in ity of 50 00:00: each [place] mcg/actuati 00 nostril. Medi pat on nasal Branch spray fluticasone 2019- Yes 2{spray Use 2 Un espinoza propionate 2-21 } Sprays in ity of 50 00:00: each [place] mcg/actuati 00 nostril. Medi pat on nasal Branch spray fluticasone 2019- Yes 2{spray Use 2 Un espinoza propionate 2-21 } Sprays in ity of 50 00:00: each [place] mcg/actuati 00 nostril. Medi pat on nasal Branch spray fluticasone 2019- Yes 2{spray Use 2 Un espinoza propionate 2-21 } Sprays in ity of 50 00:00: each [place] mcg/actuati 00 nostril. Medi pat on nasal Branch spray fluticasone 2019- Yes 2{spray Use 2 Un espinoza propionate 2-21 } Sprays in ity of 50 00:00: each [place] mcg/actuati 00 nostril. Medi pat on nasal Branch spray fluticasone 2019- Yes 2{spray Use 2 Un espinoza propionate 2-21 } Sprays in ity of 50 00:00: each [place] mcg/actuati 00 nostril. Medi pat on nasal Branch spray fluticasone 2019- Yes 2{spray Use 2 Un espinoza propionate 2-21 } Sprays in ity of 50 00:00: each [place] mcg/actuati 00 nostril. Medi pat on nasal Branch spray fluticasone 2019-07 Yes 2{spray Use 2 Un espinoza propionate 2-21 } Sprays in ity of 50 00:00: each [place] mcg/actuati 00 nostril. Medi pat on nasal Branch spray fluticasone 2019-07 Yes 2{spray Use 2 Un espinoza propionate 2-21 } Sprays in ity of 50 00:00: each [place] mcg/actuati 00 nostril. Medi pat on nasal Branch spray Immunizations Ordered Filled Immunization Date Status Comments [facility] e Immunization Name Name SARS-COV-2 COVID-19 2021-11-27 Completed Unive rsity of MODERNA 0.25ML 00:00:00 [place] Medi pat BOOSTER VACCINE Branch SARS-COV-2 COVID-19 2021-11-27 Completed Unive rsity of MODER[place] 0.25ML 00:00:00 [place] Medi pat BOOSTER VACCINE Branch SARS-COV-2 COVID-19 2021-11-27 Completed Unive rsity of MODERNA 0.25ML 00:00:00 [place] Medi pat BOOSTER VACCINE Branch SARS-COV-2 COVID-19 2021-11-27 Completed Unive rsity of MODERNA 0.25ML 00:00:00 [place] Medi pat BOOSTER VACCINE Branch SARS-COV-2 COVID-19 2021-11-27 Completed Unive rsity of MODERNA 0.25ML 00:00:00 [place] Medi pat BOOSTER VACCINE Branch SARS-COV-2 COVID-19 2021-11-27 Completed Unive rsity of MODERNA 0.25ML 00:00:00 [place] Medi pat BOOSTER VACCINE Branch SARS-COV-2 COVID-19 2021-11-27 Completed Unive rsity of MODERNA 0.25ML 00:00:00 [place] Medi pat BOOSTER VACCINE Branch SARS-COV-2 COVID-19 2021-11-27 Completed Unive rsity of MODERNA 0.25ML 00:00:00 [place] Medi pat BOOSTER VACCINE Branch SARS-COV-2 COVID-19 2021-11-27 Completed Unive rsity of MODERNA 0.25ML 00:00:00 [place] Medi pat BOOSTER VACCINE Branch SARS-COV-2 COVID-19 2021-11-27 Completed Unive rsity of MODERNA 0.25ML 00:00:00 [facility] pat BOOSTER VACCINE Branch SARS-COV-2 COVID-19 2021-11-27 Completed Unive rsity of MODERNA 0.25ML 00:00:00 [place] Medi pat BOOSTER VACCINE Branch SARS-COV-2 COVID-19 2021-11-27 Completed Unive rsity of MODERNA 0.25ML 00:00:00 [place] Medi pat BOOSTER VACCINE Branch Influenza Virus 2021-05-02 Completed Universit y of Vaccine Quad IM, 00:00:00 [place] Me dical Preserv and ABX Branch Free 6 MO-64 YRS Influenza Virus 2021-05-02 Completed Universit y of Vaccine [place] IM, 00:00:00 [place] Me dical Preserv and ABX Branch Free 6 MO-64 YRS Influenza Virus 2021-05-02 Completed Universit y of Vaccine [facility] IM, 00:00:00 [place] Me dical Preserv and ABX Branch Free 6 MO-64 YRS Influenza Virus 2021-05-02 Completed Universit y of Vaccine [facility] IM, 00:00:00 [place] Me dical Preserv and ABX Branch Free 6 MO-64 YRS Influenza Virus 2021-05-02 Completed Universit y of Vaccine [facility] IM, 00:00:00 [place] Me dical Preserv and ABX Branch Free 6 MO-64 YRS Influenza Virus 2021-05-02 Completed Universit y of Vaccine [facility] IM, 00:00:00 [place] Me dical Preserv and ABX Branch Free 6 MO-64 YRS Influenza Virus 2021-05-02 Completed Universit y of Vaccine [facility] IM, 00:00:00 [place] Me dical Preserv and ABX Branch Free 6 MO-64 YRS Influenza Virus 2021-05-02 Completed Universit y of Vaccine [facility] IM, 00:00:00 [place] Me dical Preserv and ABX Branch Free 6 MO-64 YRS Influenza Virus 2021-05-02 Completed Universit y of Vaccine Quad IM, 00:00:00 [place] Me dical Preserv and ABX Branch Free 6 MO-64 YRS Influenza Virus 2021-05-02 Completed Universit y of Vaccine [facility] IM, 00:00:00 [place] Me dical Preserv and ABX Branch Free 6 MO-64 YRS Influenza Virus 2021-05-02 Completed Universit y of Vaccine [place] IM, 00:00:00 [place] Me dical Preserv and ABX Branch Free 6 MO-64 YRS Influenza Virus 2021-05-02 Completed Universit y of Vaccine Quad IM, 00:00:00 [place] Al dical Preserv and ABX Branch Free 6 MO-64 YRS SARS-COV-2 COVID-19 2021-04-01 Completed Unive rsity of MODERNA VACCINE 00:00:00 [place] Med ical Branch SARS-COV-2 COVID-19 2021-04-01 Completed Unive rsity of MODERNA VACCINE 00:00:00 [place] Med ical Branch SARS-COV-2 COVID-19 2021-04-01 Completed Unive rsity of MODERNA VACCINE 00:00:00 [place] Med ical Branch SARS-COV-2 COVID-19 2021-04-01 Completed Unive rsity of MODERNA 12+ YRS 00:00:00 [place] Med ical VACCINE Branch SARS-COV-2 COVID-19 2021-04-01 Completed Unive rsity of MODERNA 12+ YRS 00:00:00 [place] Med ical VACCINE Branch SARS-COV-2 COVID-19 2021-04-01 Completed Unive rsity of MODERNA 12+ YRS 00:00:00 [place] Med ical VACCINE Branch SARS-COV-2 COVID-19 2021-04-01 Completed Unive rsity of MODERNA 12+ YRS 00:00:00 [place] Med ical VACCINE Branch SARS-COV-2 COVID-19 2021-04-01 Completed Unive rsity of MODERNA 12+ YRS 00:00:00 [place] Med ical VACCINE Branch SARS-COV-2 COVID-19 2021-04-01 Completed Unive rsity of MODERNA 12+ YRS 00:00:00 [place] Med ical VACCINE Branch SARS-COV-2 COVID-19 2021-04-01 Completed Unive rsity of MODERNA 12+ YRS 00:00:00 [place] Med ical VACCINE Branch SARS-COV-2 COVID-19 2021-04-01 Completed Unive rsity of MODERNA 12+ YRS 00:00:00 [place] Med ical VACCINE Branch SARS-COV-2 COVID-19 2021-04-01 Completed Unive rsity of MODERNA 12+ YRS 00:00:00 [place] Med ical VACCINE Branch SARS-COV-2 COVID-19 2020-09-19 Completed Unive rsity of MODERNA VACCINE 00:00:00 [place] Med ical Branch SARS-COV-2 COVID-19 2020-09-19 Completed Unive rsity of MODERNA VACCINE 00:00:00 [place] Med ical Branch SARS-COV-2 COVID-19 2020-09-19 Completed Unive rsity of MODERNA VACCINE 00:00:00 [place] Med ical Branch SARS-COV-2 COVID-19 2020-09-19 Completed Unive rsity of MODERNA 12+ YRS 00:00:00 [place] Med ical VACCINE Branch SARS-COV-2 COVID-19 2020-09-19 Completed Unive rsity of MODERNA 12+ YRS 00:00:00 [place] Med ical VACCINE Branch SARS-COV-2 COVID-19 2020-09-19 Completed Unive rsity of MODERNA 12+ YRS 00:00:00 [place] Med ical VACCINE Branch SARS-COV-2 COVID-19 2020-09-19 Completed Unive rsity of MODERNA 12+ YRS 00:00:00 [place] Med ical VACCINE Branch SARS-COV-2 COVID-19 2020-09-19 Completed Unive rsity of MODERNA 12+ YRS 00:00:00 [place] Med ical VACCINE Branch SARS-COV-2 COVID-19 2020-09-19 Completed Unive rsity of MODERNA 12+ YRS 00:00:00 [place] Med ical VACCINE Branch SARS-COV-2 COVID-19 2020-09-19 Completed Unive rsity of MODERNA 12+ YRS 00:00:00 [place] Med ical VACCINE Branch SARS-COV-2 COVID-19 2020-09-19 Completed Unive rsity of MODERNA 12+ YRS 00:00:00 [place] Med ical VACCINE Branch SARS-COV-2 COVID-19 2020-09-19 Completed Unive rsity of MODERNA 12+ YRS 00:00:00 [place] Med ical VACCINE Branch SARS-COV-2 COVID-19 2020-08-22 Completed Unive rsity of MODERNA VACCINE 00:00:00 [place] Med ical Branch SARS-COV-2 COVID-19 2020-08-22 Completed Unive rsity of MODERNA VACCINE 00:00:00 [place] Med ical Branch SARS-COV-2 COVID-19 2020-08-22 Completed Unive rsity of MODERNA VACCINE 00:00:00 [place] [facility] ical Branch SARS-COV-2 COVID-19 2020-08-22 Completed Unive rsity of MODERNA 12+ YRS 00:00:00 [place] Med ical VACCINE Branch SARS-COV-2 COVID-19 2020-08-22 Completed Unive rsity of MODERNA 12+ YRS 00:00:00 [place] [facility] ical VACCINE Branch SARS-COV-2 COVID-19 2020-08-22 Completed Unive rsity of MODERNA 12+ YRS 00:00:00 [place] [facility] ical VACCINE Branch SARS-COV-2 COVID-19 2020-08-22 Completed Unive rsity of MODERNA 12+ YRS 00:00:00 [place] [facility] ical VACCINE Branch SARS-COV-2 COVID-19 2020-08-22 Completed Unive rsity of MODERNA 12+ YRS 00:00:00 [place] [facility] ical VACCINE Branch SARS-COV-2 COVID-19 2020-08-22 Completed Unive rsity of MODERNA 12+ YRS 00:00:00 [place] [facility] ical VACCINE Branch SARS-COV-2 COVID-19 2020-08-22 Completed Unive rsity of MODERNA 12+ YRS 00:00:00 [place] [facility] ical VACCINE Branch SARS-COV-2 COVID-19 2020-08-22 Completed Unive rsity of MODERNA 12+ YRS 00:00:00 [facility] ical VACCINE Branch SARS-COV-2 COVID-19 2020-08-22 Completed Unive rsity of MODERNA 12+ YRS 00:00:00 [facility] VACCINE Branch Influenza Virus 2018-04-19 Completed Universit y of Vaccine 00:00:00 [facility] Influenza Virus 2018-04-19 Completed Universit y of Vaccine 00:00:00 [facility] Influenza Virus 2018-04-19 Completed Universit y of Vaccine 00:00:00 [facility] Influenza Virus 2018-04-19 Completed Universit y of Vaccine 00:00:00 [facility] Influenza Virus 2018-04-19 Completed Universit y of Vaccine 00:00:00 [facility] Influenza Virus 2018-04-19 Completed Universit y of Vaccine 00:00:00 [facility] Influenza Virus 2018-04-19 Completed Universit y of Vaccine 00:00:00 [facility] Influenza Virus 2018-04-19 Completed Universit y of Vaccine 00:00:00 [facility] Influenza Virus 2018-04-19 Completed Universit y of Vaccine 00:00:00 [facility] Influenza Virus 2018-04-19 Completed Universit y of Vaccine 00:00:00 [facility] Influenza Virus 2018-04-19 Completed Universit y of Vaccine 00:00:00 [facility] Influenza Virus 2018-04-19 Completed Universit y of Vaccine 00:00:00 [facility] Influenza Virus 2016-06-11 Completed Universit y of Vaccine (3+ yrs) 00:00:00 [facility] Influenza Virus 2016-06-11 Completed Universit y of Vaccine (3+ yrs) 00:00:00 [facility] Influenza Virus 2016-06-11 Completed Universit y of Vaccine (3+ yrs) 00:00:00 [facility] Influenza Virus 2016-06-11 Completed Universit y of Vaccine (3+ yrs) 00:00:00 [facility] Influenza Virus 2016-06-11 Completed Universit y of Vaccine (3+ yrs) 00:00:00 [facility] Influenza Virus 2016-06-11 Completed Universit y of Vaccine (3+ yrs) 00:00:00 [facility] Influenza Virus 2016-06-11 Completed Universit y of Vaccine (3+ yrs) 00:00:00 [facility] Influenza Virus 2016-06-11 Completed Universit y of Vaccine (3+ yrs) 00:00:00 [facility] Influenza Virus 2016-06-11 Completed Universit y of Vaccine (3+ yrs) 00:00:00 [facility] Influenza Virus 2016-06-11 Completed Universit y of Vaccine (3+ yrs) 00:00:00 [facility] Influenza Virus 2016-06-11 Completed Universit y of Vaccine (3+ yrs) 00:00:00 [facility] Influenza Virus 2016-06-11 Completed Universit y of Vaccine (3+ yrs) 00:00:00 [facility] Pneumococcal 2014-12-15 Completed University o f Polysaccharide, 00:00:00 [place] Med ical PPSV23 (PNEUMOVAX) [place] Pneumococcal 2014-12-15 Completed University o f Polysaccharide, 00:00:00 [place] Med ical PPSV23 (PNEUMOVAX) Branch Pneumococcal 2014-12-15 Completed University o f Polysaccharide, 00:00:00 [place] Med ical PPSV23 (PNEUMOVAX) Branch Pneumococcal 2014-12-15 Completed University o f Polysaccharide, 00:00:00 [place] Med ical PPSV23 (PNEUMOVAX) Branch Pneumococcal 2014-12-15 Completed University o f Polysaccharide, 00:00:00 [place] Med ical PPSV23 (PNEUMOVAX) Branch Pneumococcal 2014-12-15 Completed University o f Polysaccharide, 00:00:00 [place] Med ical PPSV23 (PNEUMOVAX) Branch Pneumococcal 2014-12-15 Completed University o f Polysaccharide, 00:00:00 [place] Med ical PPSV23 (PNEUMOVAX) Branch Pneumococcal 2014-12-15 Completed University o f Polysaccharide, 00:00:00 [place] Med ical PPSV23 (PNEUMOVAX) Branch Pneumococcal 2014-12-15 Completed University o f Polysaccharide, 00:00:00 [place] Med ical PPSV23 (PNEUMOVAX) Branch Pneumococcal 2014-12-15 Completed University o f Polysaccharide, 00:00:00 [place] Med ical PPSV23 (PNEUMOVAX) Branch Pneumococcal 2014-12-15 Completed University o f Polysaccharide, 00:00:00 [place] Med ical PPSV23 (PNEUMOVAX) Branch Pneumococcal 2014-12-15 Completed University o f Polysaccharide, 00:00:00 [place] Med ical PPSV23 (PNEUMOVAX) Branch Pneumococcal 13 2014-10-06 Completed Universit y of Conjugate, PCV13 00:00:00 [place] Me dical (Prevnar 13) Branch Pneumococcal 13 2014-10-06 Completed Universit y of Conjugate, PCV13 00:00:00 [place] Me dical (Prevnar 13) Branch Pneumococcal 13 2014-10-06 Completed Universit y of Conjugate, PCV13 00:00:00 [place] Me dical (Prevnar 13) Branch Pneumococcal 13 2014-10-06 Completed Universit y of Conjugate, PCV13 00:00:00 [place] Me dical (Prevnar 13) Branch Pneumococcal 13 2014-10-06 Completed Universit y of Conjugate, PCV13 00:00:00 [place] Me dical (Prevnar 13) Branch Pneumococcal 13 2014-10-06 Completed Universit y of Conjugate, PCV13 00:00:00 [place] Me dical (Prevnar 13) Branch Pneumococcal 13 2014-10-06 Completed Universit y of Conjugate, PCV13 00:00:00 [place] Me dical (Prevnar 13) Branch Pneumococcal 13 2014-10-06 Completed Universit y of Conjugate, PCV13 00:00:00 [place] Me dical (Prevnar 13) Branch Pneumococcal 13 2014-10-06 Completed Universit y of Conjugate, PCV13 00:00:00 [place] Me dical (Prevnar 13) Branch Pneumococcal 13 2014-10-06 Completed Universit y of Conjugate, PCV13 00:00:00 [place] Me dical (Prevnar 13) Branch Pneumococcal 13 2014-10-06 Completed Universit y of Conjugate, PCV13 00:00:00 [place] Me dical (Prevnar 13) Branch Pneumococcal 13 2014-10-06 Completed Universit y of Conjugate, PCV13 00:00:00 [facility] dical (Prevnar 13) Branch Vital Signs Vital Name Observation Time Observation Value Comments Source Systolic blood 2022-07-16 14:27:00 117 mm[Hg] Univer sity of [facility] Diastolic blood 2022-07-16 14:27:00 83 mm[Hg] Unive rsity of [facility] Heart rate 2022-07-16 14:27:00 76 /min Universi ty [facility] Body temperature 2022-07-16 14:27:[address] [facility] Body height 2022-07-16 14:27:[address] [facility] Body weight 2022-07-16 14:27:[facility] BMI 2022-07-16 14:27:00 29.41 kg/m2 Universi ty [facility] Systolic blood 2022-01-07 20:53:00 115 mm[Hg] Univer sity of [facility] Diastolic blood 2022-01-07 20:53:00 81 mm[Hg] Unive rsity of [facility] Heart rate 2022-01-07 20:53:00 108 /min Universi ty [facility] Body height 2022-01-07 20:53:[address] [facility] Body weight 2022-01-07 20:53:[address] [facility] BMI 2022-01-07 20:53:00 28.98 kg/m2 Universi ty [facility] Procedures This patient has no known procedures. Encounters Start End Encounter Admission Attending Care Care Encounter Source Date/Time Date/Time Type Type Clinicians Facility Department ID 2021-05-19 Emergency [facility] [id number] Univers 23:24:19 [facility] 2020-11-28 Outpatient [facility]ON[facility] [id number] [place] 14:49:07 2022-07-17 2022-07-17 Envelope [facility] Operator Lab, Ang - Db [facility] [id number] Univers 07:45:00 08:00:[address] [facility] [id number] .10 ity of [place] [id number] Aaron as CHARLIE?BLEA [id number] Al juan jose LOPEZ [address] MEDICAL OFFICE [facility] 2022-07-17 2022-07-17 Outpatient R KATERYNA [facility] [id number] Univers 07:45:00 07:45:00 DAVID [facility] 2022-07-16 2022-07-16 Office [facility] [id number] Univers 08:30:00 09:00:[address] [facility] [id number] it y of [place] [id number] Aaron as CHARLIE?BLEA [id number] Al alemirna LOPEZ [address] [place] [address] OFFICE [facility] 2022-07-16 2022-07-16 Outpatient R KATERYNA [facility] [id number] Univers 08:30:00 08:30:00 DAVID [facility] 2022-07-09 2022-07-09 Outpatient R YOLY [facility] [id number] Univers 13:45:00 13:45:00 IRENE [facility] 2022-07-08 2022-07-08 Telephone [facility] [id number] Univers 00:00:00 00:00:00 [facility] [id number] it y of [place] [id number] Aaron as CHARLIE?BLEA [id number] Al alemirna LOPEZ [address] MEDICAL OFFICE BUILDING 2022-07-01 2022-07-01 [facility]phone [facility] [id number] Univers 00:00:00 00:00:00 Gabrielle S HEALTH [id number] it y of [place] [id number] Aaron as CHARLIE?BLEA [phone] Al juan jose LOPEZ [address] OFFICE BUILDING 2022-06-27 2022-06-27 [facility] [id number] Univers 00:00:00 00:00:00 Secure Msg Gabrielle S HEALTH [id number] ity of [place] [id number] [place] as CHARLIE?BLEA [phone] Al juan jose LOPEZ [address] OFFICE BUILDING 2022-06-13 2022-06-13 [facility] [id number] Univers 00:00:00 00:00:00 David HEALTH [id number] it y of [place] 4.2.7.2.686 Aaron as CHARLIE?BLEA [id number] Al juan jose LOPEZ [address] OFFICE [facility] 2022-06-13 2022-06-13 Refill Bubba [facility] [id number] Univers 00:00:00 00:00:00 Wondiful A HEALTH [id number] ity of [place] 4.2.7.2.686 Aaron as CHARLIE?BLEA [phone] Al juan jose LOPEZ [address] OFFICE [facility] 2022-03-06 2022-03-06 [facility] [id number] Univers 00:00:00 00:00:00 David HEALTH [id number] it y of [place] [id number] Aaron as CHARLIE?BLEA [id number] Al juan jose LOPEZ [address] OFFICE BUILDING 2022-02-13 2022-02-13 Refill [facility] 1.2.840.114 [id number] Univers 00:00:00 00:00:00 Unassigned, HEALTH [id number] ity of [place] 4.2.7.2.686 Aaron as CHARLIE?BLEA [phone] [address] OFFICE [facility] 2022-01-07 2022-01-07 Office Kateryna [facility] [id number] Univers 16:00:00 16:30:[address] [facility] [id number] it y of [place] 4.2.7.2.686 Aaron as CHARLIE?BLEA [id number] [address] OFFICE [facility] 2022-01-07 2022-01-07 Outpatient R KATERYNA [facility] [id number] Univers 16:00:00 16:09:05 DAVID [facility] 2022-01-07 2022-01-07 Outpatient R KATERYNA [facility] [id number] Univers 16:00:00 16:00:00 DAVID [facility] 2021-12-30 2021-12-30 Noel Espinosa [facility] 1.2.840.114 [id number] Univers 00:00:00 00:00:00 Wondiful A [place] [id number] [place]y of [place]2.7.2.[place] [id number] [address] 2021-12-23 2021-12-23 Telephone Team, [facility] SRAVAN [id number] Univers 00:00:00 00:00:00 Health JUANA [id number] it y of [facility] 4.2.7.2.686 [place] [id number] [address] 2021-11-27 2021-11-27 Imm/Inj Vaccine, Ang Db Cbc Fam [facility] 1. 2.840.114 [id number] Univers 09:20:00 09:30:00 Visit January [place] [id number] ity of [place] 4.2.7.2.686 Aaron as CHARLIE?BLEA [id number] [address] OFFICE [facility] 2021-11-27 2021-11-27 Outpatient R GRACIE [facility] [id number] Univers 09:20:00 09:20:00 JANUARY ity of [facility] 2021-10-14 2021-10-14 Outpatient R BUBBA [facility] [id number] Univers 08:30:00 08:30:00 WONDIFUL ity o f [facility] 2021-10-14 2021-10-14 Outpatient R BUBBA [facility] [id number] Univers 08:30:00 08:30:00 WONDIFUL ity o f [facility] 2021-10-14 2021-10-14 Outpatient R BUBBA [facility] [id number] Univers 08:30:00 08:30:00 WONDIFUL ity o f [facility] 2021-10-08 2021-10-08 Pre Visit JOCY Augustin [id number] Univers 00:00:00 00:00:00 Outreach Lela [place] [id number] ity of [place] 4.2.7.2.686 [place] [phone] [facility] [address] 2021-09-19 2021-09-19 Orders Doctor SRAVAN [id number] [id number] Univers 00:00:00 00:00:00 Only Unassigned, JUANA 350.1.13.10 ity of [place] [facility] 4.2.7.2.686 Aaron as [id number] [facility] [address] 2021-09-10 2021-09-10 [facility] [id number] Univers 15:45:00 16:15:20 WONDIFUL ity o f [facility] 2021-09-06 2021-09-06 Telephone [facility] [id number] [id number] Univers 00:00:00 00:00:00 Wondiful A HEALTH 350.1.13.10 ity of [place] 4.2.7.2.686 [place] as CHARLIE?BLEA [id number] [address] MEDICAL OFFICE BUILDING 2021-09-05 2021-09-05 Telephone [facility] 1.2.840.114 [id number] Univers 00:00:00 00:00:00 Wondiful A HEALTH [id number] ity of [place] 4.2.7.2.686 Aaron as CHARLIE?BLEA [phone] [facility] OFFICE [facility] 2021-08-30 2021-08-30 Telephone [facility] [id number] Univers 00:00:00 00:00:00 Wondiful [facility] [id number] ity of [place] [id number] Aaron as CHARLIE?BLEA [phone] [facility] [address] OFFICE [facility] 2021-08-30 2021-08-30 Telephone [facility] [id number] Univers 00:00:00 00:00:00 Wondiful [facility] HEALTH [id number] ity of [place] 4.2.7.2.686 Aaron as CHARLIE?BLEA [phone] [address] OFFICE [facility] 2021-08-28 2021-08-28 Patient [facility] 1.2.840.114 [id number] Univers 00:00:00 00:00:00 Secure Msg Wondiful A HEALTH 350.1.13.10 ity of [place] 4.2.7.2.686 Aaron as CHARLIE?BLEA [phone] [address] OFFICE [facility] 2021-08-26 2021-08-26 [facility] 1.2.840.114 [id number] Univers 11:15:00 11:52:38 Visit Wondiful A HEALTH 350.1.13.10 ity of [place] 4.2.7.2.686 Aaron as CHARLIE?BLEA [phone] [address] OFFICE [facility] 2021-08-26 2021-08-26 Outpatient R BUBBA [facility] [id number] Univers 11:15:00 11:52:38 WONDIFUL ity o f [facility] 2021-08-26 2021-08-26 Outpatient R BUBBA [facility] [id number] Univers 11:15:00 11:15:00 WONDIFUL ity o f [facility] 2021-07-04 2021-07-04 Telephone [facility] 1.2.840.114 [id number] Univers 00:00:00 00:00:00 Irene L HEALTH 350.1.13.10 it y of [place] 4.2.7.2.686 Aaron as CHARLIE?BLEA [phone] Al juan jose LOPEZ [address] [place] [address] OFFICE [facility] 2021-06-28 2021-06-28 [facility] [id number] Univers 09:15:00 09:15:[address] [facility] 2021-06-28 2021-06-28 Outpatient [facility] [id number] Univers 08:15:00 08:44:40 IRENE [facility] 2021-06-28 2021-06-28 [facility] 1.2.379.144 [id number] Univers 08:15:00 08:44:40 Visit Irene Hudson HEALTH 350.1.13.10 it y of [place] 4.2.7.2.686 Aaron as CHARLIE?BLEA [phone] Al juan jose LOPEZ [address] [place] [address] 2021-06-28 2021-06-28 [facility]ill [facility] 1.2.840.114 [id number] Univers 00:00:00 00:00:00 Mahogany [place] 350.1.13.10 ity of [place]2.7.2.[place] PROF[place] [phone] Al juan jose PARKER [address] [place] [address] 2021-06-26 2021-06-26 Telephone [facility] 1.2.840.114 [id number] Univers 00:00:00 00:00:00 Irene L HEALTH 350.1.13.10 it y of [place] 4.2.7.2.686 Aaron as CHARLIE?BLEA [phone] Al juan jose LOPEZ [address] OFFICE [facility] 2021-06-25 2021-06-25 Office [facility] 1.2.840.114 [id number] Univers 15:30:00 15:45:00 Visit Gabrielle S HEALTH 350.1.13.10 it y of [place] 4.2.7.2.686 Aaron as CHARLIE?BLEA [phone] Al juan jose LOPEZ [address] MEDICAL OFFICE [facility] 2021-06-25 2021-06-25 Outpatient Keke RODRIGUEZ [facility] [id number] Univers 15:30:00 15:30:00 [facility] 2021-06-25 2021-06-25 Outpatient R MICHAEL [facility] [id number] Univers 15:30:00 15:30:00 GABRIELLE [facility] 2021-06-18 2021-06-18 Orders Doctor SRAVAN 1.2.840.114 [id number] Univers 00:00:00 00:00:00 Only Unassigned, JUANA 350.1.13.10 ity of [place] [facility] 4.2.7.2.686 Aaron as [phone] [facility] [address] 2021-06-09 2021-06-09 Telephone SRAVAN Fernandez 1.2.103.438 [id number] Univers 00:00:00 00:00:00 Yumiko ARIAS 350.1.13.10 i ty of [facility] 4.2.7.2.686 Aaron as [phone] [facility] [address] 2021-06-08 2021-06-08 Outpatient Keke MEDRANO [facility] [id number] Univers 09:40:00 11:06:55 [facility] 2021-06-08 2021-06-08 Urgent Smitha Medrano [facility] 1.2.840.114 [id number] Univers 09:18:32 09:38:32 Care Gloria Yin [facility] 350.1.13.10 ity of [place] 4.2.7.2.686 Aaron as CHARLIE?BLEA [phone] Al juan jose LOPEZ [address] MEDICAL OFFICE [facility] 2021-05-27 2021-05-27 Telephone Yoly KYVIANCA 1.2.840.114 [id number] Univers 00:00:00 00:00:00 Irene L HEALTH 350.1.13.10 it y of [place] 4.2.7.2.686 Aaron as CHARLIE?BLEA [phone] Al dical [address] OFFICE [facility] 2021-05-20 2021-05-20 Orders Doctor HINSON 1.2.840.114 [id number] Univers 00:00:00 00:00:00 Only Unassigned, JUANA 350.1.13.10 ity of [place] [facility] 4.2.7.2.686 Aaron as [phone] [address] 2021-05-18 2021-05-18 Orders Doctor HINSON 1.2.840.114 [id number] Univers 00:00:00 00:00:00 Only Unassigned, JUANA 350.1.13.10 ity of [place] [facility] 4.2.7.2.686 Aaron as [phone] [address] 2021-05-17 2021-05-17 Telephone [facility] 1.2.840.114 [id number] Univers 00:00:00 00:00:00 Irene Hudson Phone.com 350.1.13.10 it y of [place] 4.2.7.2.686 Aaron as CHARLIE?BLEA [phone] Al juan jose LOPEZ [address] [place] [address] OFFICE [facility] 2021-05-15 2021-05-15 Telephone [facility] 1.2.840.114 [id number] Univers 00:00:00 00:00:00 Irene Hudson Udemy 350.1.13.10 it y of [place] 4.2.7.2.686 Aaron as Charlie?Blea [phone] Al juan jose lopez [address] [place] [address] Office [facility] 2021-05-13 2021-05-13 Office [facility] 1.2.300.502 [id number] Univers 15:13:46 15:45:52 Visit Irene Hudson Udemy 350.1.13.10 it y of [place] 4.2.7.2.686 Aaron as Charlie?Blea [phone] Al juan jose [address]oyer[address] Office [facility] 2021-05-13 2021-05-13 [facility] [id number] Univers 15:00:00 15:00:[address] [facility] 2021-05-13 2021-05-13 Orders Doctor HINSON 1.2.840.114 [id number] Univers 00:00:00 00:00:00 Only Unassigned, JUANA 350.1.13.10 ity of [place] [facility] 4.2.7.2.686 Aaron as [phone] [address] 2021-05-02 2021-05-02 Imm/Inj Nurse, Jem Posadas [facility] 1.2.840.114 [id number] Univers 08:57:17 09:17:17 Visit Feliciano Espinosa [facility] 350.1.13.1 0 ity of [place] 4.2.7.2.686 Aaron as Charlie?Blea [phone] [address] Medical Office Building 2021-05-02 2021-05-02 Outpatient R BUBBA [facility] [id number] Univers 08:40:00 08:40:00 WONDIFUL ity o f [facility] 2021-04-18 2021-04-18 Outpatient R YOLY [facility] [id number] Univers 08:00:00 08:00:[address] [facility] 2021-04-15 2021-04-15 Office [facility] 1.2.840.114 [id number] Univers 09:09:24 09:56:13 Visit Wondiful A Health 350.1.13.10 ity of [place] 4.2.7.2.686 Aaron as Charlie?Blea [phone] [address] Medical Office Building 2021-04-15 2021-04-15 Outpatient R BUBBA [facility] [id number] Univers 09:00:00 09:00:00 WONDIFUL ity o f [facility] 2021-04-05 2021-04-05 Outpatient R BUBBA [facility] [id number] Univers 14:00:00 14:00:00 WONDIFUL ity o f [facility] 2021-03-04 2021-03-04 Outpatient R BUBBA [facility] [id number] Univers 11:15:00 11:15:00 WONDIFUL ity o f [facility] 2021-02-16 2021-02-16 Outpatient R MARCELA [facility] [id number] Univers 11:20:00 11:20:00 SMITHA quintana of [facility] 2021-02-16 2021-02-16 Laboratory Lab, Adc Fam Pob I [facility] 1.2. 840.114 [id number] Univers 10:45:17 11:05:17 Only Green, Smitha Health 350.1.13.10 ity of [place] 4.2.7.2.686 Aaron as Professio [phone] Al dicma nal [address] Office [facility] One 2021-01-28 2021-01-28 Telephone Bubba [facility] 1.2.840.114 [id number] Univers 00:00:00 00:00:00 Wondiful A Health 350.1.13.10 ity of [place] 4.2.7.2.686 Aaron as Professio [phone] [facility] nal 044 [facility] One 2021-01-07 2021-01-07 [facility] 1.2.840.114 [id number] Univers 14:20:00 23:59:00 Encounter Silvia SPECIALTY 350.1.13.10 ity of [place].2.686 [place] AT [phone] Al juan jose VICTORRicco 8[address] [facility] 2021-01-07 2021-01-07 Office [facility] 1.2.079.457 [id number] Univers 14:14:32 15:19:16 Visit Silvia SPECIALTY 350.1.13.10 it[place]2.[place] [phone] Al juan jose FONTANEZ [address] [facility] 2021-01-07 2021-01-07 Out[facility] [id number] Univers 14:20:00 14:20:[address] [facility] 2021-01-03 2021-01-03 Out[facility] [id number] Univers 14:30:00 14:30:00 WONDIFUL ity o f [facility] 2020-12-31 2020-12-31 Office [facility] 1.2.840.114 [id number] Univers 13:27:46 14:05:01 Visit Mahogany [place] 350.1.13.10 ity of [place].2.[place] [phone] Al dical nal 044 [facility] 2020-12-31 2020-12-31 Outpatient R ALEYDA [facility] [id number] Univers 13:30:00 13:30:00 MAHOGANY ity o f [facility] 2020-12-26 2020-12-26 Case Bubba [facility] 1.2.840.114 [id number] Univers 00:00:00 00:00:00 Management Wondiful A Health 350.1.13.10 ity of [place] 4.2.7.2.686 Aaron as Professio [phone] [address] Office [facility] One 2020-12-23 2020-12-24 Emergency Eric Tubbs [facility] 1.2.840. 114 [id number] Univers 10:32:00 14:30:00 Kaveh [place] 350.1.13.10 ity of [place] 4.2.7.2.686 [facility] [phone] [facility] [address] 2020-12-18 2020-12-18 Hospital Bubba [facility] 1.2.918.178 [id number] Univers 12:40:25 23:59:00 Encounter Manful A [place] 350.1.13.10 ity of [place] 4.2.7.2.686 [facility] [phone] [facility] [address] 2020-12-18 2020-12-18 Envelope Machine Operator Lab, Gretel Hui Pob I [facility] 1.2. 840.114 [id number] Univers 11:28:13 11:48:13 Visit Feliciano Espinosa Health 350.1.13.1 0 ity of [place] 4.2.7.2.686 Aaron as Professio [phone] [facility] nal [address] [place] [address] Office [facility] One 2020-12-18 2020-12-18 Office Bubba [facility] 1.2.840.114 [id number] Univers 10:18:52 11:29:26 Visit Manful A Health 350.1.13.10 ity of [place] 4.2.7.2.686 Aaron as Professio [phone] Al dical [address] Office Building One 2020-12-18 2020-12-18 Outpatient Keke ESPINOSA [facility] [id number] Univers 10:00:00 10:00:00 WONDIFUL ity o f [facility] 2020-12-18 2020-12-18 Orders Doctor SRAVAN 1.2.840.114 [id number] Univers 00:00:00 00:00:00 Only Unassigned, JUANA 350.1.13.10 ity of [place] [facility] 4.2.7.2.686 Aaron as [phone] [facility] [address] 2020-11-29 2020-11-29 Letter Doctor SRAVAN 1.2.840.114 [id number] Univers 00:00:00 00:00:00 (Out) Unassigned, JUANA 350.1.13.10 ity of [place] [facility] 4.2.7.2.686 Aaron as [phone] [facility] [address] 2020-09-19 2020-09-19 Outpatient Keke REYNA [facility] [id number] Univers 08:20:00 08:20:[address] [facility] 2020-08-22 2020-08-22 Outpatient Keke REYNA [facility] [id number] Univers 08:20:00 08:20:[address] [facility] Results This patient has no known results.
[2022-07-20] MEDS ORDERED: NA CHLORIDE 0.9% 500 ML ONE (23:54)
[2022-07-21 00:33] LABS: Urine Blood Negative (Negative); Urine Glucose Negative (Negative); Urine Protein Negative (Negative); Urine Specific Gravity >=1.030 (1.005-1.030); Urine pH 5.5 (5.0-7.0)
[2022-07-21 00:37] LABS: Hematocrit 41.5 % (39.6-49.0); Lymphocytes % 9.4 % (15.3-44.8); MCV 62.4 fL (80-100); MPV 8.3 fL (7.6-11.3); RBC Red Blood Cell Count 6.65 M/uL (4.33-5.43)
[2022-07-21 00:42] LABS: Protime INR 1.07
[2022-07-21 00:56] LABS: Calcium Oxalate Crystals- Ur Few /HPF (None Seen); Urine Bacteria <20 /HPF (<20); Urine Mucus Slight /HPF (None Seen); Urine RBC <5 /HPF (None Seen)
[2022-07-21 01:09] LABS: Blood Morphology Comment NOTED (NOT SEEN); Ovalocytes 1+; Platelet Estimate ADEQ; Platelets, Giant FEW; White Blood Cell Scan OK (OK)
[2022-07-21 01:11] LABS: Albumin 4.1 g/dL (3.4-5.0); Bilirubin Direct 0.2 mg/dL (0-0.2); Bilirubin Total 0.8 mg/dL (0.2-1.0); Magnesium 2.4 mg/dL (1.6-2.4); Protein, Total 7.3 g/dL (6.4-8.2); Troponin High Sensitivity 5.6 pg/mL (<58.9)
--- NOTE | 2022-07-21 05:12 | ER ---
Nurse's Notes [facility] Name: Lenny Castillo Age: 52 yrs Sex: Male : 1970 Arrival Date: 07/20/2022 Time: 23:04 Bed 3 Private MD: Diagnosis: Syncope Near;Chest pain, unspecified-CONTUSION;Strain of muscle and tendon of front wall of thorax, initial encounter;Abdominal pain, unspecified Presentation: 07/20 23:35 Chief complaint: Patient states: around 2200 tonight he was experiencing abdominal bb cramping and nausea while attempting to have a bowel movement. States he strained from approximately 20-30 minutes and as he was walking back to his bed he had a syncopal episode causing an abrasion to his right upper forehead and his chin. States after the fall he began experiencing a mild cramping in his left upper breast. Coronavirus screen: Vaccine status: Patient reports receiving the 2nd dose of the covid vaccine. Client denies travel out of the [place] in the last 14 days. Ebola Screen: Patient negative for fever greater than or equal to 101.5 degrees Fahrenheit, and additional compatible Ebola Virus Disease symptoms Patient denies exposure to infectious person. Patient denies travel to an Ebola-affected area in the 21 days before illness onset. Initial Sepsis Screen: Does the patient meet any 2 criteria? No. Patient's initial sepsis screen is negative. Does the patient have a suspected source of infection? No. Patient's initial sepsis screen is negative. Risk Assessment: Do you want to hurt yourself or someone else? Patient reports no desire to harm self or others. Onset of symptoms was July 20, 2022 at 22:00. 23:35 Method Of Arrival: Ambulatory bb 23:35 Acuity: DREA 3 bb Triage Assessment: 23:38 General: Appears in no apparent distress. Behavior is calm, cooperative. Pain: bb Complains of pain in left clavicle and anterior aspect of left upper chest Pain does not radiate. Pain currently is 3 out of 10 on a pain scale. Quality of pain is described as crampy, Pain began 1 hour ago. Cardiovascular: Reports chest pain. Historical: - Allergies: 23:38 No Known Allergies; bb - Home Meds: 23:38 rosuvastatin 20 mg oral cpSP 1 cap once daily [Active]; losartan 50 mg oral tab 1 tab bb once daily [Active]; - PMHx: 23:38 aortic aneurysm; Asthma; Hypercholesterolemia; Hypertensive disorder; bb - PSHx: 23:38 None; bb - Immunization history:: Adult Immunizations up to date, Client reports receiving the 2nd dose of the Covid vaccine, Last tetanus immunization: up to date. - Social history:: Smoking status: Patient denies any tobacco usage or history of. Screenin/02 00:11 [facility] ED Fall Risk Assessment (Adult) History of falling in the last 3 months, ha1 including since admission No falls in past 3 months (0 pts) Confusion or Disorientation No (0 pts) Intoxicated or Sedated No (0 pts) Impaired Gait No (0 pts) Mobility Assist Device Used No (0 pt) Altered Elimination No (0 pt) Score/Fall Risk Level 0 - 2 = Low Risk Oriented to surroundings, Maintained a safe environment, Educated pt \T\ family on fall prevention, incl call for assistance when getting out of bed, Hourly rounding (assess needs \T\ fall precautionary measures) done. Abuse screen: Denies threats or abuse. Denies injuries from another. Nutritional screening: No deficits noted. Tuberculosis screening: No symptoms or risk factors identified. Assessment: 07/20 23:43 General: Appears comfortable, Behavior is calm, cooperative. Pain: Complains of pain in ha1 chest. Pain: Pain does not radiate. Pain currently is 3 out of 10 on a pain scale. Quality of pain is described as crampy. Pain: Pain began suddenly. Neuro: Level of Consciousness is awake, alert, obeys commands, Oriented to person, place, time, situation. Cardiovascular: Capillary refill < 3 seconds Patient's skin is warm and dry. Respiratory: Airway is patent Trachea midline Respiratory effort is even, unlabored, Respiratory pattern is regular, symmetrical. GI: No signs and/or symptoms were reported involving the gastrointestinal system. Abdomen is flat, non-distended, Bowel sounds present X 4 quads. : No signs and/or symptoms were reported regarding the genitourinary system. EENT: No deficits noted. No signs and/or symptoms were reported regarding the EENT system. Derm: Skin is pink, warm \T\ dry. Musculoskeletal: Circulation, motion, and sensation intact. Range of motion: intact in all extremities. 07/21 01:40 Reassessment: Patient and/or family updated on plan of care and expected duration. Pain ha1 level reassessed. Patient is alert, oriented x 3, equal unlabored respirations, skin warm/dry/pink. 02:17 Reassessment: Patient appears in no apparent distress at this time. Patient and/or as6 family updated on plan of care and expected duration. Pain level reassessed. Patient is alert, oriented x 3, equal unlabored respirations, skin warm/dry/pink. 03:15 Reassessment: Patient and/or family updated on plan of care and expected duration. Pain ha1 level reassessed. Patient is alert, oriented x 3, equal unlabored respirations, skin warm/dry/pink. 04:15 Reassessment: Patient and/or family updated on plan of care and expected duration. Pain ha1 level reassessed. Patient is alert, oriented x 3, equal unlabored respirations, skin warm/dry/pink. Vital Signs: 07/20 23:35 Pain 3/10; bb 23:42 BP 105 / 80; Pulse 70; Resp 15 S; Pulse Ox 99% on R/A; Weight 92.99 kg; Height 5 ft. 10 ha1 in. (177.80 cm); Pain 3/10; 23:46 Temp 98.1; ha1 07/21 01:30 BP 114 / 77; Pulse 67; Resp 15; Pulse Ox 100% on R/A; ha1 02:16 BP 114 / 76; Pulse 66; Resp 13 S; Pulse Ox 99% on R/A; as6 03:15 BP 109 / 78; Pulse 69; Resp 15 S; Pulse Ox 99% on R/A; ha1 04:15 BP 108 / 86; Pulse 65; Resp 15 S; Pulse Ox 99% on R/A; ha1 05:26 BP 109 / 80; Pulse 69; Resp 13 S; Pulse Ox 98% on R/A; as6 07/20 23:42 Body Mass Index 29.41 (92.99 kg, 177.80 cm) 1 ED Course: 07/20 23:04 Patient arrived in ED. ja2 23:30 Melanie Lagunas, RN is Primary Nurse. ha1 23:30 Patient has correct armband on for positive identification. Placed in gown. Bed in low ha1 position. Call light in reach. Side rails up X 1. Client placed on continuous cardiac and pulse oximetry monitoring. NIBP monitoring applied. 23:38 Triage completed. bb 23:38 Arm band placed on right wrist. Patient placed in an exam room, on a stretcher. bb 23:47 Eleazar Wilson MD is Attending Physician. [facility] 07/21 00:05 XRAY Chest (1 view) In Process Unspecified. EDMS 00:20 Inserted saline lock: 18 gauge in right antecubital area, using aseptic technique. as6 Blood collected. ultrasound guided. 00:32 Urine Microscopic Only Sent. as6 00:32 Lipase Sent. as6 00:32 Basic Metabolic Panel Sent. as6 00:32 CBC with Diff Sent. as6 00:32 LFT's Sent. as6 00:32 Magnesium Sent. as6 00:32 Troponin HS Sent. as6 00:32 PT-INR Sent. as6 00:32 NT PRO-BNP Sent. as6 01:30 Door closed. Noise minimized. Warm blanket given. ha1 01:41 CT Head C Spine In Process Unspecified. EDMS 01:41 CT Aorta for Dissection In Process Unspecified. EDMS 05:10 Deyvi London MD is Referral Physician. [facility] 05:26 No provider procedures requiring assistance completed. IV discontinued, intact, as6 bleeding controlled, No redness/swelling at site. Pressure dressing applied. Patient maintains SpO2 saturation greater than 95% on room air. Administered Medications: 00:25 Drug: NS 0.9% 500 ml Route: IV; Rate: bolus; Site: right antecubital; as6 05:25 Follow up: Response: No adverse reaction; IV Status: Completed infusion; IV Intake: as6 500ml Medication: 00:32 VIS not applicable for this client. as6 Intake: 05:25 IV: 500ml; Total: 500ml. as6 Outcome: 05:12 Discharge ordered by . [facility] 05:26 Discharged to home ambulatory. as6 05:26 Condition: stable 05:26 Discharge instructions given to patient, Instructed on discharge instructions, follow up and referral plans. medication usage, Demonstrated understanding of instructions, follow-up care, medications, Prescriptions given X 2. 05:27 Patient left the ED. as6 Signatures: Dispatcher [employer] EDTN Eleazar Wilson MD MD cha Ballard, Brenda, RN RN bb Cee Lozano Ashby, RN RN as6 Melanie Lagunas, RN RN ha1
--- NOTE | 2022-07-21 05:13 | EDPHYS ---
Physician Documentation [facility] Name: Lenny Castillo Age: 52 yrs Sex: Male : 1970 Arrival Date: 07/20/2022 Time: 23:04 Bed 3 Private MD: ED Physician Eleazar Wilson HPI: 07/21 05:06 This 52 yrs old Male presents to ER via Ambulatory with complaints of Chest jaycob Pain, Fainting. 05:06 The patient or guardian reports chest pain that is located primarily in the anterior jaycob chest wall, left. Onset: just prior to arrival, this morning. Historical: - Allergies: 07/20 23:38 No Known Allergies; bb - Home Meds: 23:38 rosuvastatin 20 mg oral cpSP 1 cap once daily [Active]; losartan 50 mg oral tab 1 tab bb once daily [Active]; - PMHx: 23:38 aortic aneurysm; Asthma; Hypercholesterolemia; Hypertensive disorder; bb - PSHx: 23:38 None; bb - Immunization history:: Adult Immunizations up to date, Client reports receiving the 2nd dose of the Covid vaccine, Last tetanus immunization: up to date. - Social history:: Smoking status: Patient denies any tobacco usage or history of. ROS: 07/21 05:06 Constitutional: Negative for fever, chills, and weight loss, Eyes: Negative for injury, jaycob pain, redness, and discharge, ENT: Negative for injury, pain, and discharge, Neck: Negative for injury, pain, and swelling, Respiratory: Negative for shortness of breath, cough, wheezing, and pleuritic chest pain, Back: Negative for injury and pain, : Negative for injury, bleeding, discharge, and swelling, MS/Extremity: Negative for injury and deformity, Skin: Negative for injury, rash, and discoloration, Psych: Negative for depression, anxiety, suicide ideation, homicidal ideation, and hallucinations, Allergy/Immunology: Negative for hives, rash, and allergies, Endocrine: Negative for neck swelling, polydipsia, polyuria, polyphagia, and marked weight changes, Hematologic/Lymphatic: Negative for swollen nodes, abnormal bleeding, and unusual bruising. Cardiovascular: Positive for chest pain, with movement, of the anterior aspect of left upper chest and left breast. Respiratory: Negative for cough, shortness of breath. Abdomen/GI: Positive for abdominal pain, nausea and vomiting, abdominal cramps. Exam: 05:06 Constitutional: This is a well developed, well nourished patient who is awake, alert, jaycob and in no acute distress. Head/Face: Normocephalic, atraumatic. Eyes: Pupils equal round and reactive to light, extra-ocular motions intact. Lids and lashes normal. Conjunctiva and sclera are non-icteric and not injected. Cornea within normal limits. Periorbital areas with no swelling, redness, or edema. ENT: Nares patent. No nasal discharge, no septal abnormalities noted. Tympanic membranes are normal and external auditory canals are clear. Oropharynx with no redness, swelling, or masses, exudates, or evidence of obstruction, uvula midline. Mucous membranes moist. Neck: Trachea midline, no thyromegaly or masses palpated, and no cervical lymphadenopathy. Supple, full range of motion without nuchal rigidity, or vertebral point tenderness. No Meningismus. Cardiovascular: Regular rate and rhythm with a normal S1 and S2. No gallops, murmurs, or rubs. Normal PMI, no JVD. No pulse deficits. Respiratory: Lungs have equal breath sounds bilaterally, clear to auscultation and percussion. No rales, rhonchi or wheezes noted. No increased work of breathing, no retractions or nasal flaring. Abdomen/GI: Soft, non-tender, with normal bowel sounds. No distension or tympany. No guarding or rebound. No evidence of tenderness throughout. Back: No spinal tenderness. No costovertebral tenderness. Full range of motion. Male : Normal genitalia with no discharge or lesions. Skin: Warm, dry with normal turgor. Normal color with no rashes, no lesions, and no evidence of cellulitis. MS/ Extremity: Pulses equal, no cyanosis. Neurovascular intact. Full, normal range of motion. Neuro: Awake and alert, GCS 15, oriented to person, place, time, and situation. Cranial nerves II-XII grossly intact. Motor strength 5/5 in all extremities. Sensory grossly intact. Cerebellar exam normal. Normal gait. Psych: Awake, alert, with orientation to person, place and time. Behavior, mood, and affect are within normal limits. 05:06 Chest/axilla: Inspection: normal, no abrasion, no abscess, no assymetry, no cellulitis, no deformity, no ecchymosis, no evidence of flail chest, no paradoxical chest wall movement, no puncture, no rash, no scar(s), Palpation: tenderness, that is mild, of the left clavicle and anterior aspect of left upper chest, Axilla: are normal, Lymph nodes: lymphadenopathy is not appreciated. 05:06 ECG was reviewed by the Attending Physician. 05:06 Musculoskeletal/extremity: DVT Exam: No signs of deep vein thrombosis. no pain, no swelling, no tenderness, negative Homans' sign noted on exam, no appreciated bluish discoloration, no erythema, no increased warmth. Vital Signs: 07/20 23:35 Pain 3/10; bb 23:42 BP 105 / 80; Pulse 70; Resp 15 S; Pulse Ox 99% on R/A; Weight 92.99 kg; Height 5 ft. 10 ha1 in. (177.80 cm); Pain 3/10; 23:46 Temp 98.1; ha1 07/21 01:30 BP 114 / 77; Pulse 67; Resp 15; Pulse Ox 100% on R/A; ha1 02:16 BP 114 / 76; Pulse 66; Resp 13 S; Pulse Ox 99% on R/A; as6 03:15 BP 109 / 78; Pulse 69; Resp 15 S; Pulse Ox 99% on R/A; ha1 04:15 BP 108 / 86; Pulse 65; Resp 15 S; Pulse Ox 99% on R/A; ha1 05:26 BP 109 / 80; Pulse 69; Resp 13 S; Pulse Ox 98% on R/A; as6 07/20 23:42 Body Mass Index 29.41 (92.99 kg, 177.80 cm) ha MDM: 07/20 23:47 Patient medically screened. jaycob 07/21 05:09 Differential diagnosis: abnormal EKG, acute myocardial infarction, acute pericarditis, jaycob anxiety, chest wall pain, cholecystitis, Cholelithiasis Nonspecific abd pain, gastritis, cholecystitis, pancreatitis, hiatal hernia, pneumonia, pulmonary embolus, unstable angina, Cholelithiasis, diverticulitis, gastritis, Hepatitis, Mesenteric ischemia or infarction, non-specific abd pain, Peptic Ulcer Disease, Peritonitis, Pyelonephritis, Ureterolithiasis. Differential diagnosis: coronary artery disease. Data reviewed: vital signs, nurses notes, lab test result(s), EKG, radiologic studies, CT scan, plain films. 05:13 HEART Score: History: Slightly Suspicious (0), ECG: Normal (0), Age: > 45 and < 65 jaycob years (1), Risk Factors: > or = 3 Risk factors for atherosclerotic disease (2), [Hypercholesterolemia] [Hypertension] [+ Family HX] Troponin: < or = 1 x Normal Limit (0). Differential Diagnosis: cardiac arrhythmia, emotional response, idiopathic syncope, seizure, vasovagal episode. The patient was given aspirin in the Emergency Department. The patient's deep vein thrombosis risk score was calculated as follows: Total Score: 0. This patient was found to be at low risk for a deep vein thrombosis by using the Well's assessment criteria. The patient's pulmonary embolism risk score was calculated as follows: Total Score: 0-2 points. This patient was found to be at low risk for a pulmonary embolism by using the Well's assessment criteria. ESAU Risk Score: 1 - Three or more CAD risk factors, 1 - ASA use in past 7 days, TOTAL SCORE = 2. Data interpreted: insurance clerk: rate is 65 beats/min, rhythm is regular, Pulse oximetry: on room air is 99 %. Test interpretation: by ED physician or midlevel provider: ECG, plain radiologic studies. Counseling: I had a detailed discussion with the patient and/or guardian regarding: the historical points, exam findings, and any diagnostic results supporting the discharge/admit diagnosis, lab results, radiology results, the need for outpatient follow up, for definitive care, a retail support associate, a family practitioner. 07/20 23:50 Order name: Basic Metabolic Panel 07/20 23:50 Order name: CBC with Diff 07/20 23:50 Order name: LFT's 07/20 23:50 Order name: Magnesium 07/20 23:50 Order name: NT PRO-BNP 07/20 23:50 Order name: PT-INR 07/20 23:50 Order name: Troponin HS 07/20 23:50 Order name: XRAY Chest (1 view) 07/20 23:50 Order name: CT Head C Spine 07/20 23:50 Order name: CT Aorta for Dissection 07/20 23:50 Order name: Lipase 07/20 23:50 Order name: Urine Microscopic Only /02 00:33 Order name: Urine Dipstick-Ancillary [facility] 07/21 00:40 Order name: CBC Smear Scan [facility] 07/20 23:50 Order name: EKG; Complete Time: 23:51 [facility] 07/20 23:50 Order name: Cardiac monitoring; Complete Time: 00:02 [facility] 07/20 23:50 Order name: EKG - Nurse/Tech; Complete Time: 00:02 [facility] 07/20 23:50 Order name: IV Saline Lock; Complete Time: 00:32 [facility] 07/20 23:50 Order name: Labs collected and sent; Complete Time: 00:32 [facility] 07/20 23:50 Order name: O2 Per Protocol; Complete Time: 00:02 [facility] 07/20 23:50 Order name: O2 Sat Monitoring; Complete Time: 00:02 [facility] 07/20 23:50 Order name: Urine Dipstick-Ancillary (obtain specimen); Complete Time: 00:32 [facility] EC:06 Rate is 67 beats/min. Rhythm is regular. QRS [place] is Normal. MD interval is normal. QRS jaycob interval is normal. QT interval is normal. No Q waves. T waves are Normal. No ST changes noted. Clinical impression: Normal ECG and No evidence of ischemia. Interpreted by me. Reviewed by me. Administered Medications: 00:25 Drug: NS 0.9% 500 ml Route: IV; Rate: bolus; Site: right antecubital; as6 05:25 Follow up: Response: No adverse reaction; IV Status: Completed infusion; IV Intake: as6 500ml Disposition Summary: 07/21/22 05:12 Discharge Ordered Location: Home jaycob Problem: new jaycob Symptoms: have improved jaycob Condition: Stable jaycob Diagnosis - Syncope Near jaycob - Chest pain, unspecified - CONTUSION jaycob - Strain of muscle and tendon of front wall of thorax, initial encounter jaycob - Abdominal pain, unspecified jaycob Followup: jaycob - With: Private Physician - When: 2 - 3 days - Reason: Recheck today's complaints, Continuance of care, Re-evaluation by your physician Followup: jaycob - With: Deyvi London MD - When: 2 - 3 days - Reason: Recheck today's complaints, Continuance of care, Re-evaluation by your physician Discharge Instructions: - Discharge Summary Sheet jaycob - Abdominal Pain, Adult jaycob - Chest Wall Pain jaycob - Near-Syncope jaycob - Syncope jaycob - Weakness jaycob - Chest Wall Pain, [id number] jaycob - Near-Syncope, [id number] jaycob - Weakness, [id number] jaycob Forms: - Medication Reconciliation Form jaycob - Thank You Letter jaycob - Antibiotic Education jaycob - Prescription Opioid Use jaycob Prescriptions: - Zofran 4 mg Oral Tablet - take 1 tablet by ORAL route every 12 hours As needed; 20 tablet; Refills: 0, jaycob Product Selection Permitted - dicyclomine 20 mg Oral Tablet - take 1 tablet by ORAL route 4 times per day; 28 tablet; Refills: 0, Product jaycob Selection Permitted Signatures: Dispatcher [employer] EDEleazar White MD MD cha Ballard, Brenda, RN RN Hossein Arthur RN RN as6
[2022-07-21 06:07] VITALS: TEMP 98.1
[2022-07-21 06:12] VITALS: BP 109/80; O2SAT 98
--- NOTE | 2022-07-21 13:11 | RAD REPORT ---
EXAM DESCRIPTION: RAD - Chest Single View - 07/21/2022 12:02 am CLINICAL HISTORY: The patient is 52 years old and is Male; CHEST PAIN TECHNIQUE: Frontal view of the chest. COMPARISON: No relevant prior studies available. FINDINGS: Lungs: Unremarkable. No consolidation. Pleural space: Unremarkable. No pneumothorax. Heart: Unremarkable. Mediastinum: Unremarkable. Bones/joints: Unremarkable. IMPRESSION: No acute findings in the chest. Electronically signed by: Lenny Rubio MD 07/21/2022 12:41 AM [employer]ER Due to temporary technical issues with the PACS/Fluency reporting system, reports are being signed by the in house radiologists without review as a courtesy to insure prompt reporting. The interpreting radiologist is fully responsible for the content of the report.
--- NOTE | 2022-07-21 13:19 | RAD REPORT ---
EXAM DESCRIPTION: CT - [id number] - 07/21/2022 6:39 am CLINICAL HISTORY: The patient is 52 years old and is Male; FALL TECHNIQUE: Axial computed tomography images of the head/brain and cervical spine without intravenous contrast. Sagittal and coronal reformatted images were created and reviewed. This CT exam was pe rformed using one or more of the following dose reduction techniques: automated exposure control, a djustment of the mA and/or kV according to patient size, and/or use of iterative reconstruction techn ique. COMPARISON: No relevant prior studies available. FINDINGS: BRAIN: Unremarkable. No hemorrhage. No significant white matter disease. No edema. VENTRICLES: Unremarkable. No ventriculomegaly. SKULL: No acute fracture. SINUSES: Unremarkable as visualized. No acute sinusitis. MASTOID AIR CELLS: Unremarkable as visualized. No mastoid effusion. VERTEBRAE: The vertebral body heights and alignment are maintained. No acute fracture. DISCS/SPINAL CANAL/NEURAL FORAMINA: The intervertebral disc spaces are maintained. No spinal can al stenosis. SOFT TISSUES: The soft tissues are normal. LUNG APICES: Unremarkable as visualized. IMPRESSION: 1. No acute intracranial findings. 2. No fracture or malalignment of the cervical spine. Electronically signed by: Judy Junior MD 07/21/2022 2:50 AM PEL[employer] SKINNER Due to temporary technical issues with the PACS/Fluency reporting system, reports are being signed by the in house radiologists without review as a courtesy to insure prompt reporting. The interpreting radiologist is fully responsible for the content of the report.
--- NOTE | 2022-07-21 13:23 | RAD REPORT ---
EXAM DESCRIPTION: CT - Angio Aorta For Dissection - 07/21/2022 6:39 am CLINICAL HISTORY: The patient is 52 years old and is Male; DISSECTION TECHNIQUE: Axial computed tomographic angiography images of the chest, abdomen and pelvis with intra venous contrast. Sagittal and coronal reformatted images were created and reviewed. This CT exam was performed using one or more of the following dose reduction techniques: automated exposure cont rol, adjustment of the mA and/or kV according to patient size, and/or use of iterative reconstruction technique. MIP reconstructed images were created and reviewed. COMPARISON: No relevant prior studies available. FINDINGS: VASCULATURE: AORTA: No acute findings. No aortic aneurysm. No dissection. PULMONARY ARTERIES: Unremarkable as visualized. No pulmonary embolism is identified. GREAT VESSELS OF AORTIC ARCH: No acute findings. No dissection. No arterial occlusion or sig nificant stenosis. CELIAC TRUNK AND MESENTERIC ARTERIES: No acute findings. No occlusion or significant stenosis. RENAL ARTERIES: No acute findings. No occlusion or significant stenosis. ILIAC ARTERIES: No acute findings. No occlusion or significant stenosis. CHEST: LUNGS: Minimal dependent densities in the lung bases are present. The lungs are otherwise well -inflated and clear. PLEURAL SPACE: Unremarkable. No significant effusion. No pneumothorax. HEART: Unremarkable. No cardiomegaly. No significant pericardial effusion. ABDOMEN: LIVER: The cavernous hemangioma within the right lobe of the liver measuring approximately 2 cm is present. The liver is otherwise homogeneous. GALLBLADDER AND BILE DUCTS: Unremarkable. No calcified stones. No ductal dilation. PANCREAS: Unremarkable. No ductal dilation. No mass. SPLEEN: Unremarkable. No splenomegaly. ADRENALS: Unremarkable. No mass. KIDNEYS AND URETERS: Unremarkable. No hydronephrosis. No solid mass. STOMACH AND BOWEL: The stomach is decompressed. The small bowel is normal in caliber. Stool is p resent throughout colon. There is no mucosal thickening or evidence of obstruction. PELVIS: APPENDIX: The appendix is normal in caliber without surrounding inflammation. BLADDER: The bladder is moderately distended. REPRODUCTIVE: Unremarkable as visualized. CHEST, ABDOMEN and PELVIS: INTRAPERITONEAL SPACE: Unremarkable. No significant fluid collection. No free air. BONES/JOINTS: No acute fracture. No dislocation. SOFT TISSUES: A fat-containing umbilical hernia is present. LYMPH NODES: Unremarkable. No enlarged lymph nodes. IMPRESSION: No acute findings on this CTA of the chest, abdomen and pelvis to explain the patient's symptoms. Electronically signed by: Judy Junior MD 07/21/2022 2:53 AM AIR QUALITY CHEMIST Due to temporary technical issues with the PACS/Fluency reporting system, reports are being signed by the in house radiologists without review as a courtesy to insure prompt reporting. The interpreting radiologist is fully responsible for the content of the report.
--- NOTE | 2022-07-22 08:34 | EKG ---
Test Date: 2022-07-20 Test Time: 23:35:12 Blood Bank Calendar Control Clerk: MORIS MEASUREMENT RESULTS: Intervals: Rate: 67 NV: 156 QRSD: 98 QT: 384 QTc: 405 [place]: P: 28 NV: 156 QRS: -9 T: 35 INTERPRETIVE STATEMENTS: Normal sinus rhythm Incomplete right bundle branch block Borderline ECG Compared to ECG 08/30/2021 13:02:33 No significant changes Electronically Signed On 07-22-22 08:31:22 [employer] JOURNEY[employer] by Deyvi London
== END 2022-07-21 05:27 | disposition home or self-care (01) ==
LOC: ER 23:03
DX: S29.011A Strain of muscle and tendon of front wall of thorax, initial encounter (principal); S20.219A Contusion of unspecified front wall of thorax, initial encounter; R10.9 Unspecified abdominal pain; R55 Syncope and collapse; I10 Essential (primary) hypertension
CPT/HCPCS: 96361; 93005; 85025; 80048; 36415; 83735; 85610; 82565; 80076; 81003; 81015; 84484; 83690; 83880; 70450; 72125; 71275; 74175; 71045; 96360; 99284; Q9967; J7040